=== PATIENT | male | born 1955 | race Caucasian/White ===

== ENCOUNTER → 2016-07-31 | Outpatient (CLI) | payer BC, OTHER ==
[~2016-07-31] MED LIST: HYDR-5688 PO; MULT-506 PO; TURM1CAP4 PO
== END | disposition home or self-care (01) ==
LOC: C.LABSPEC 15:43
PROVIDERS: ATTEND Internal Medicine Hematology & Oncology
DX: C18.9 Malignant neoplasm of colon, unspecified (principal)

== ENCOUNTER → 2016-08-19 | Outpatient (CLI) | payer OTHER | END | disposition home or self-care (01) | LOC: C.CPL 15:39 | PROVIDERS: ATTEND Surgery | DX: Z01.810 Encounter for preprocedural cardiovascular examination (principal); C19 Malignant neoplasm of rectosigmoid junction; I87.8 Other specified disorders of veins ==

== ENCOUNTER → 2016-08-24 | Day surgery (SDC) | payer OTHER ==
[2016-08-20 09:04] VITALS: BMI 36.0
[~2016-08-24] VITALS: Ht 185.4 cm; Wt 125.0 kg
[~2016-08-24] MED LIST changes: +ATROPINE SULFATE 0.1 MG/ML 5ML SYR IV PRN; +BUPIVACAINE/EPINEPHRINE 0.5% MPF 1:200,000 30 ML VIAL ONE; +CEFAZOLIN 3000 MG/65 ML D5W IV SCH; +EpHEDrine SULFATE INJ 50 MG/ML AMP IV PRN; +FENTANYL CITRATE INJ 50 MCG/1 ML 2 ML VIAL IV PRN; +FENTANYL CITRATE INJ 50 MCG/1 ML 2 ML VIAL ONE; +HEPARIN SOD (PORCINE) 1000 UNIT/ML 10 ML VIAL ONE; +HEPARIN SOD 5000 UNIT/0.5 ML CARP SQ SCH; +HYDROCODONE/ACETAMOPHEN 5/325MG TAB PO PRN; +LACTATED RINGER'S 1000ML 1,000 ML IV SCH; +MIDAZOLAM HCL 1 MG/ML 2ML VIAL ONE; +ONDANSETRON INJ 2 MG/ML 2 ML VIAL IV PRN; +PROPOFOL IV EMULSION 10 MG/ML 20 ML VIAL IV ONE; +SODIUM CHLORIDE 0.9% 1000ML 1,000 ML IV SCH
[2016-08-24 08:23] VITALS: BP 171/90; TEMP 36.6; O2SAT 97; Ht 185.4 cm; Wt 125.0 kg
--- NOTE | 2016-08-24 08:38 | History & Physical Bridge Note ---
H&P Re-Evaluation Bridge Note: I have examined the patient, reviewed the History & Physical and in the interval since the performance of the History & Physical I have noted the following changes of clinical significance: no changes. he had left subclavian port before so we will place right subclavian. discussed bleeding/infection/ infection of port requiring explant, thrombus, pneumothorax etc...questions answered. ok to proceed.
--- NOTE | 2016-08-24 10:12 | Discharge Instructions ---
Discharge Instructions Date of Service Aug 24, 2016. Visit Reason for Visit: Colorectal Cancer, Poor Venous Access Discharge Discharge Diagnosis / Problem: Colorectal Cancer, Poor Venous Access Discharge Goals Goal(s): Improve function Activity Recommendations Activity Limitations: as noted below Lifting Limitations: no more than 10 pounds Exercise/Sports Limitations: gradually increase as tolerated May Resume Sexual Activity: when tolerated Shower/Bathe: tomorrow Anesthesia . Post Anesthesia Instructions: If you have had General Anesthesia or IV Sedation: * Do not drive today. * Resume driving when surgeon permits. * Do not make important decisions or sign legal documents today. * Call surgeon for: 1. Temperature elevations greater than 101 degrees F. 2. Uncontrollable pain. 3. Excessive bleeding. 4. Persistent nausea and vomiting. 5. Medication intolerance (nausea, vomiting or rash). * For nausea and vomiting use only clear liquids such as: tea, soda, bouillon until nausea subsides, then gradually increase diet as tolerated. * If you have any concerns or questions, call your surgeon's office. If physician is unavailable and it is an emergency, call 911 or go to the nearest emergency room. . Instructions / Follow-Up Instructions / Follow-Up Please call Dr. Borden's office at [phone] with any questions or concerns. Diet Recommendations Recommended Home Diet: no limitations, resume previous diet Pending Studies Studies pending at discharge: no Medical Emergencies . Who to Call and When: Medical Emergencies: If at any time you feel your situation is an emergency, please call 911 immediately. . Non-Emergent Contact Non-Emergency issues call your: Primary Care Provider, Surgeon Call Non-Emergent contact if: temperature is above 101.5, your pain is not controlled, wound has increased drainage, wound has increased redness . . "Provider Documentation" section prepared by Petty Ruiz.
--- NOTE | 2016-08-24 11:00 | [facility] Operative Report ---
Operative Report Operative Date Aug 24, 2016. Pre-Operative Diagnosis Poor Venous Access, Colorectal Cancer Post-Operative Diagnosis need for chemotherapy Procedure(s) Performed right subclavian mediport insertion under fluoroscopy Surgeon Dr. Kingsley Borden Research Physiologist Surgeon(s) Petty Ruiz PA-C Estimated Blood Loss 5ml Findings normal anatomy during insertion. Specimens none Anesthesia MAC Complication(s) None Disposition Recovery Room / PACU I attest to the content of the Intraoperative Record and any orders documented therein. Any exceptions are noted below.
[2016-08-24 11:39] VITALS: BP 169/88; PULSE 58; TEMP 36.4; O2SAT 95
--- NOTE | 2016-08-24 12:05 | DIAGNOSTIC IMAGING REPORT ---
CHEST ONE VIEW PORTABLE CLINICAL HISTORY: A-port placement tube position COMPARISON STUDY: 06/17/2013 FINDINGS: A-Port position in the superior vena cava. Lungs are clear. Diaphragms are smooth. IMPRESSION: A port within the superior vena cava. No evidence of pneumothorax. Electronically signed by: Jin Iverson M.D. 08/24/2016 12:03 PM Dictated Date/Time: 08/24/2016 11:38 AM
[2016-08-24 12:10] VITALS: BP 168/80; PULSE 61; TEMP 36.4; O2SAT 99
--- NOTE | 2016-08-24 13:18 | Anesthesiology Progress Note ---
Anesthesia Post Op Note Date & Time Aug 24, 2016 at 13:17 Vital Signs Pain Intensity: 0 Vital Signs Past 12 Hours Date Time Temp Pulse Resp B/P Pulse Ox O2 Delivery O2 Flow Rate FiO2 08/24/16 12:10 36.4 61 18 168/80 99 Room Air 08/24/16 11:39 36.4 58 18 169/88 95 Room Air 08/24/16 11:30 36.5 58 14 147/93 94 Room Air 08/24/16 11:20 63 14 145/99 97 Room Air 08/24/16 11:10 36.2 72 12 163/85 100 Mask 10 08/24/16 08:23 36.6 18 171/90 97 Room Air Notes Mental Status: alert / awake / arousable, participated in evaluation Pt Amnestic to Procedure: Yes Nausea / Vomiting: adequately controlled Pain: adequately controlled Airway Patency, RR, SpO2: stable & adequate BP & HR: stable & adequate Hydration State: stable & adequate Anesthetic Complications: no major complications apparent
--- NOTE | 2016-08-24 14:22 | OPERATIVE REPORT ---
DATE OF OPERATION: 08/24/2016 PREOPERATIVE DIAGNOSIS: Colorectal cancer, need for chemotherapy. POSTOPERATIVE DIAGNOSIS: Same. PROCEDURE: Right subclavian MediPort insertion under fluoroscopy. SURGEON: Kingsley Borden DO. PANEL SAW OPERATOR: Petty Ruiz PA-C. ESTIMATED BLOOD LOSS: Approximately 5 mL. COMPLICATIONS: No immediate. ANESTHESIA: Monitored anesthesia care with local Marcaine. OPERATIVE NOTE: After informed consent was obtained, the patient was taken to the operating suite, placed in the supine position. A rolled towel was placed between the shoulder blades and the right arm was tucked. The upper chest wall was shaved. After IV sedation was administered, the right upper chest wall was sterilely prepped and draped in usual fashion. We used some Marcaine to create a skin wheal in the area of the housing pocket as well as up to the periosteum of the right clavicle. A horizontal incision was made with 15 blade scalpel and carried down through the soft tissue using electrocautery. Blunt finger dissection was used to create housing pocket for the MediPort itself. The catheter was flushed and connected to the MediPort. We then used a finder needle to access the right subclavian vein and advanced the guidewire through it under fluoroscopy into the superior vena cava. We then cut the catheter to appropriate length again under fluoroscopic guidance. We removed the needle and then advanced a vascular dilator with a peelaway sheath over the guidewire again under fluoroscopy. We then placed the MediPort into the housing pocket, withdrew the vascular dilator and the guidewire. We then advanced the catheter through the peelaway sheath. We then peeled the sheath away leaving the catheter in place. We verified position with fluoroscopy. We then flushed the port with heparin, withdrew dark venous blood and then flushed it again with heparin. We irrigated the wound pocket and then secured the MediPort to the pectoralis fascia using 0 Ethibond using three-point fixation. We then closed the housing pocket by using 3-0 Monocryl for the subcutaneous layer and 3-0 Monocryl for the skin. A sterile dressing was applied. The patient was awakened and transferred to recovery in stable condition. Postoperative portable chest x-ray to verify catheter position and to rule out pneumothorax is currently pending. I attest to the content of the Intraoperative Record and any orders documented therein. Any exceptio ns are noted below.
== END | disposition home or self-care (01) ==
LOC: C.ACU 07:48
PROVIDERS: ATTEND Surgery
DX: C19 Malignant neoplasm of rectosigmoid junction (principal)

== ENCOUNTER → 2017-03-30 | Outpatient (CLI) | payer OTHER ==
[~2017-03-30] MED LIST changes: -ATROPINE SULFATE 0.1 MG/ML 5ML SYR IV PRN; -BUPIVACAINE/EPINEPHRINE 0.5% MPF 1:200,000 30 ML VIAL ONE; -CEFAZOLIN 3000 MG/65 ML D5W IV SCH; -EpHEDrine SULFATE INJ 50 MG/ML AMP IV PRN; -FENTANYL CITRATE INJ 50 MCG/1 ML 2 ML VIAL IV PRN; -FENTANYL CITRATE INJ 50 MCG/1 ML 2 ML VIAL ONE; -HEPARIN SOD (PORCINE) 1000 UNIT/ML 10 ML VIAL ONE; -HEPARIN SOD 5000 UNIT/0.5 ML CARP SQ SCH; -HYDR-5688 PO; -HYDROCODONE/ACETAMOPHEN 5/325MG TAB PO PRN; -LACTATED RINGER'S 1000ML 1,000 ML IV SCH; -MIDAZOLAM HCL 1 MG/ML 2ML VIAL ONE; -ONDANSETRON INJ 2 MG/ML 2 ML VIAL IV PRN; -PROPOFOL IV EMULSION 10 MG/ML 20 ML VIAL IV ONE; -SODIUM CHLORIDE 0.9% 1000ML 1,000 ML IV SCH
[2017-03-30 12:25] LABS: ALT/SGPT 32 U/L (12-78); AST/SGOT 18 U/L (15-37); BLOOD UREA NITROGEN 13 mg/dl (7-18); BUN/CREATININE RATIO 11.8 (10-20); CALCIUM 8.6 mg/dl (8.5-10.1); CARBON DIOXIDE 27 mmol/L (21-32); CHLORIDE 107 mmol/L (98-107); CHOLESTEROL 141 mg/dl (0-200); CREATININE 1.12 mg/dl (0.60-1.40); GLUCOSE,FASTING 105 mg/dl (70-99); POTASSIUM 4.6 mmol/L (3.5-5.1); SODIUM 139 mmol/L (136-145)
[2017-03-30 12:29] LABS: ALB/GLOB RATIO 0.9 (0.9-2); ALKALINE PHOSPHATASE 76 U/L (45-117); CHOLESTEROL/HDL RATIO 3.1; HDL CHOLESTEROL 45 mg/dl; LDL CHOLESTEROL CALCULATED 75 mg/dl; TRIGLYCERIDES 105 mg/dl (0-150); VERY LOW DENSITY LIPOPROT CALC 21 mg/dl
== END | disposition home or self-care (01) ==
LOC: C.LABPBG 08:15
PROVIDERS: ATTEND Physician Assistant
DX: Z00.00 Encounter for general adult medical examination without abnormal findings (principal)

== ENCOUNTER → 2017-04-14 | Outpatient (CLI) | payer OTHER ==
[~2017-04-14] MED LIST changes: +OPTIRAY 320 IV PRN
--- NOTE | 2017-04-14 14:20 | DIAGNOSTIC IMAGING REPORT ---
(CHEST) THORAX WITH CT DOSE: 2765.67 mGy.cm HISTORY: Metastatic disease. LIVER W/METS TECHNIQUE: Multiaxial CT images of the chest were performed following the intravenous administration of contrast. A dose lowering technique was utilized adhering to the principles of ALARA. COMPARISON: None. FINDINGS: There are no focal infiltrative changes. Several small micronodules are present throughout both lungs. Medial aspect right apex is a 4 mm groundglass nodule transaxial image 11. There is a calcified granuloma right upper lobe transaxial image 25. Minimal pleural-based nodule left chest posteriorly image 28. There is no significant mediastinal or hilar adenopathy. Several calcified nodes are present. There is central catheter in this. Vena cava. Several small blastic nodules are present within the spine raising the possibility of metastatic bone change. Limited evaluation the upper abdomen shows a multinodular appearing liver. IMPRESSION: 1. Several small nodules scattered throughout both hemithoraces with a 3-6 month follow-up suggested. 2. Potential blastic bony metastatic change. 3. No significant mediastinal or hilar adenopathy. 4. Nodular appearing liver The above report was generated using voice recognition software. It may contain grammatical, syntax or spelling errors. Electronically signed by: Jin Iverson M.D. 04/14/2017 2:19 PM Dictated Date/Time: 04/14/2017 2:15 PM
--- NOTE | 2017-04-14 14:22 | DIAGNOSTIC IMAGING REPORT ---
ABDOMEN AND PELVIS CT WITH IV AND ORAL CONTRAST HISTORY: Prior cecal mass resection with reported hepatic metastasis. Follow-up exam. LIVER W/METS TECHNIQUE: Multiaxial CT images of the abdomen and pelvis were performed following the use of intravenous and oral contrast. A dose lowering technique was utilized adhering to the principles of ALARA. COMPARISON STUDY: CT abdomen and pelvis 04/17/2015 and 06/11/2013. FINDINGS: The lung bases are generally clear. There is no pneumatosis or pneumoperitoneum. Imaged inferior cardiac chambers are unremarkable. Bilateral gynecomastia. Heterogeneous appearance of the liver. Lobulated low attenuating lesion involving segment 8 of the liver measures 3.2 x 2.7 cm containing a marginal calcification. This is new from prior exam. Ill-defined low attenuating lesion involving segment segment 7 within the subserosal distribution measures 3.2 x 2.3 cm. 7 mm low attenuating lesion of the right hepatic lobe on image 24 series 3 appears unchanged from prior exam and may reflect a cyst. There is a mild amount of perihepatic fluid noted adjacent to the right hepatic lobe. No intrahepatic biliary ductal dilation. The spleen, pancreas and adrenal glands are within normal limits. The gallbladder appears to be surgically absent. Nonobstructing 3 mm calculus of the inferior pole left kidney. Cyst of the superior pole right kidney measures 1.9 cm. There is no renal calculi or hydronephrosis. Urinary bladder is unremarkable. The prostate is mildly enlarged. Atherosclerosis of the aorta is mild. Mildly enlarged periportal lymph nodes are seen, largest of which measures up to 2.3 x 1.3 cm. No additional pathologic adenopathy identified. There is no bowel obstruction or focal bowel wall thickening identified. Moderate stool volume throughout the colon. There are postsurgical changes compatible with partial right hemicolectomy with ileocolic anastomosis. Anterior abdominal wall incisional hernias are noted, largest of which is right paracentral and measures 4.7 m transversely containing nonobstructive loop of tortuous sigmoid colon. There are no suspicious lytic or blastic bony lesions to suggest metastasis. IMPRESSION: 1. Postoperative changes compatible with prior partial right hemicolectomy with ileocolic anastomosis. 2. Low attenuating lesions of the liver as described above suggest hepatic metastasis with trace perihepatic ascites. 3. Mild periportal adenopathy may reflect lymphatic metastasis. 4. Anterior abdominal wall incisional hernias are noted including a supraumbilical right paracentral hernia containing a loop of nonobstructed sigmoid colon. 5. Left nephrolithiasis. Electronically signed by: Jean Claude Brantley M.D. 04/14/2017 2:21 PM Dictated Date/Time: 04/14/2017 2:07 PM
== END | disposition home or self-care (01) ==
LOC: C.CTS 13:30
PROVIDERS: ATTEND Internal Medicine Hematology & Oncology
DX: C78.7 Secondary malignant neoplasm of liver and intrahepatic bile duct (principal); N20.0 Calculus of kidney; R91.8 Other nonspecific abnormal finding of lung field

== ENCOUNTER → 2017-07-14 | Outpatient (CLI) | payer OTHER ==
[~2017-07-14] MED LIST changes: -OPTIRAY 320 IV PRN
--- NOTE | 2017-07-14 09:40 | DIAGNOSTIC IMAGING REPORT ---
PET/CT SKULL-THIGH CLINICAL HISTORY: COLORECTAL CA COMPARISON STUDY: CT scan dated 04/14/2017 FINDINGS: The patient was injected with 14.2 mCi of F 18 labeled FDG. Following the standard induction phase, PET/CT scanning was performed from the skull base to the upper thigh region. Activity within the neck is felt to be physiologic. Within the chest, there is no pathologic ari activity. There is slight interval enlargement in a 6 mm right apical pulmonary nodule, and 6 mm left upper lobe pulmonary nodule. The lack of FDG activity does not exclude metastatic disease. Close follow-up is recommended. There are 3 FDG avid right lobe hepatic lesions. These lesions are difficult to visualize on the accompanying CT scan. These demonstrate SUV maximums of approximately 10. Hepatic metastases are suspected. There is no pathologic adrenal gland activity. There is no pathologic splenic activity. There is physiologic urinary tract and bowel activity. There are several ventral hernias containing both bowel and fat. There are postsurgical changes involve the right colon. No FDG avid skeletal lesions are visualized. IMPRESSION: 1. FDG avid right lobe hepatic lesions, likely metastatic 2. Slight interval enlargement a 6 mm right apical pulmonary nodule, and 6 mm left upper lobe pulmonary nodule. Although not FDG avid, metastatic disease must still be considered. Close follow-up is recommended. Electronically signed by: Cosme Heath M.D. 07/14/2017 9:39 AM Dictated Date/Time: 07/14/2017 9:28 AM
== END | disposition home or self-care (01) ==
LOC: C.PET 06:58
PROVIDERS: ATTEND Internal Medicine Hematology & Oncology
DX: C78.7 Secondary malignant neoplasm of liver and intrahepatic bile duct (principal); C18.9 Malignant neoplasm of colon, unspecified

== ENCOUNTER 2018-07-12 11:51 | Inpatient (IN) ==
[2018-07-12] MEDS ORDERED: ONDANSETRON INJ 2 MG/ML 2 ML VIAL IV STA ×2 (12:37→15:28)
[2018-07-12] MEDS ORDERED: SODIUM CHLORIDE 0.9% 1000ML 1,000 ML IV SCH (12:45)
--- NOTE | 2018-07-12 12:48 | Emergency Department Note ---
History of Present Illness General Chief complaint: Referred by Doctor Stated complaint: POSSIBLE BOWEL OBSTRUCTION Time Seen by Provider: 07/12/18 12:29 History of Present Illness Maximum Pain Intensity: 2 This 63-year-old male presents the ER being sent here by Dr. Milton for possible bowel obstruction or incarcerated hernia. The patient admits to abdominal pain in the area of a known hernia on the right side. The patient states that he had a small hernia in this area and then when he had an abdominal surgery it had gotten larger. Normally he can push it back in but he states he cannot push it back in at this time. The patient's last normal bowel movement was on Wednesday evening. Since that time he has had increased abdominal discomfort, nausea and vomiting. He has been taking Zofran with some relief of the nausea. He has been unable to eat or drink. The patient has history of colorectal cancer with metastatic disease to the liver and kidneys. The patient has had multiple abdominal surgeries. The patient currently is not undergoing any chemo or radiation. Home Medications Home Medications Medication Instructions Recorded Confirmed Type lisinopril 20 mg PO DAILY 07/12/18 07/12/18 History multivitamin 1 tab PO DAILY 07/12/18 07/12/18 History ondansetron HCl [Zofran] 0 mg PO UD PRN 07/12/18 07/12/18 History Allergies Allergy/AdvReac Type Severity Reaction Status Date / Time No Known Allergies Allergy Unverified 08/24/16 08:19 Past Med/Surg History Medical History Colon cancer (Resolved) Surgical History History of colon resection (Resolved) Social History Preferred Language: [place] Citizen Feels Safe at Home: Yes Smoking Status: Former smoker Review of Systems A total of 10 systems reviewed and were otherwise negative Physical Exam Vital Signs Vital Signs - 24 hr 07/12/18 11:54 07/12/18 13:26 07/12/18 13:28 Temperature 36.6 C Temperature Source Oral Sepsis Recent Fever Within 48 Hours No Sepsis New/Unexplained Change in Mental Status No Sepsis Action Taken by Nursing No Action Required Pulse Rate 80 Pulse Rate [Left Finger] 62 Pulse Rhythm [Left Finger] Pulse Strength [Left Finger] Respiratory Rate 18 16 Respiratory Effort / Characteristics Non-Labored Spontaneous Non-Labored Respiratory Depth Normal Normal Respiratory Pattern Regular Blood Pressure 143/86 H Blood Pressure [Left Arm] 130/80 Blood Pressure Mean 105 Blood Pressure Mean [Left Arm] 96 Blood Pressure Position Sitting Blood Pressure Position [Left Arm] Pulse Oximetry 100 100 Oxygen Delivery Method Room Air Room Air Room Air 07/12/18 14:53 07/12/18 15:30 07/12/18 16:49 Temperature Temperature Source Sepsis Recent Fever Within 48 Hours Sepsis New/Unexplained Change in Mental Status Sepsis Action Taken by Nursing Pulse Rate Pulse Rate [Left Finger] 77 65 66 Pulse Rhythm [Left Finger] Regular Regular Regular Pulse Strength [Left Finger] Normal Normal Normal Respiratory Rate 20 18 18 Respiratory Effort / Characteristics Non-Labored Spontaneous Non-Labored Spontaneous Non-Labored Spontaneous Respiratory Depth Normal Normal Normal Respiratory Pattern Regular Regular Regular Blood Pressure Blood Pressure [Left Arm] 188/85 H 176/86 H 150/75 H Blood Pressure Mean Blood Pressure Mean [Left Arm] 119 116 100 Blood Pressure Position Blood Pressure Position [Left Arm] Sitting Sitting Sitting Pulse Oximetry 100 96 100 Oxygen Delivery Method Room Air Room Air Room Air 07/12/18 19:00 07/12/18 19:49 Temperature 37.1 C Temperature Source Oral Sepsis Recent Fever Within 48 Hours Sepsis New/Unexplained Change in Mental Status Sepsis Action Taken by Nursing Pulse Rate Pulse Rate [Left Finger] 57 L 64 Pulse Rhythm [Left Finger] Pulse Strength [Left Finger] Respiratory Rate 18 Respiratory Effort / Characteristics Non-Labored Spontaneous Respiratory Depth Normal Respiratory Pattern Regular Blood Pressure Blood Pressure [Left Arm] 128/72 167/79 H Blood Pressure Mean Blood Pressure Mean [Left Arm] 90 108 Blood Pressure Position Blood Pressure Position [Left Arm] Sitting Lying Pulse Oximetry 96 98 Oxygen Delivery Method Room Air Room Air GENERAL: 63-year-old white male appears in no acute distress. MENTAL Status: Alert and oriented x3. MOUTH: Mucosa is slightly dry. NECK: Supple, no lymphadenopathy noted. No carotid bruits noted. LUNGS: Clear auscultation without wheezes rales or rhonchi. CARDIAC: Regular rate and rhythm without murmur. Pulses is full and equal throughout. BACK: No CVA tenderness noted. ABDOMEN: Multiple abdominal scars noted. Positive bowel sounds all 4 quadrants. Soft, palpable hernia noted mid right abdomen which is approximately 2 inches x 1 inch. It is not reducible. There is tenderness palpation in this area. Remainder of abdomen is nontender. EXTREMITIES: No cyanosis or edema noted. Course Administered Medications Discontinued Medications Sodium Chloride (Nss 1000ml) 1,000 mls @ 999 mls/hr IV .Q1H1M TRINH Stop: 07/12/18 13:45 Last Admin: 07/12/18 13:19 Dose: 999 mls/hr Documented by: [id number] Prochlorperazine 10 mg/ (Syringe) 10 mls @ 5 mls/min IV ONE ONE Stop: 07/12/18 13:44 Last Admin: 07/12/18 13:57 Dose: Not Given Documented by: [id number] Ioversol (Optiray 320 100ml) 94 ml IV ONCE PRN PRN Reason: Interaction Checking Stop: 07/16/18 16:33 Last Admin: 07/12/18 16:34 Dose: 94 ml Documented by: [id number] Ondansetron HCl (Zofran) 4 mg IV NOW STA Stop: 07/12/18 12:38 Last Admin: 07/12/18 13:14 Dose: 4 mg Documented by: [id number] Ondansetron HCl (Zofran) 8 mg IV NOW STA Stop: 07/12/18 15:29 Last Admin: 07/12/18 15:37 Dose: 8 mg Documented by: [id number] Prochlorperazine (Compazine) Confirm Administered Dose 10 mg .ROUTE .STK-MED ONE Stop: 07/12/18 13:53 Last Admin: 07/12/18 13:55 Dose: 10 mg Documented by: [id number] Medical Decision Making Differential Diagnosis Incarcerated hernia, small bowel obstruction, mass obstruction Medical Records Attestation: I reviewed the patient's medical records. Home Medications Current Medication List: was personally reviewed by me Laboratory Data Attestation: I reviewed the patient's lab results. Result diagrams: 07/12/18 13:00 07/12/18 13:00 Lab Results 07/12/18 07/12/18 Range/Units 13:00 13:00 WBC 9.95 (4.8-10.8) K/uL RBC 4.22 L (4.7-6.1) M/uL Hgb 13.8 L (14.0-18.0) g/dL Hct 39.8 L (42-52) % MCV 94.3 (80-100) fL MCH 32.7 (25-34) pg MCHC 34.7 (32-36) g/dL RDW Std Deviation 45.4 (36.4-46.3) fL RDW Coeff of Carrington 13.2 (11.5-14.5) % Plt Count 159 (130-400) K/uL MPV 10.0 (7.4-10.4) fL Immature Gran % (Auto) 0.4 % Neut % (Auto) 83.4 % Lymph % (Auto) 8.7 % Gilliam % (Auto) 7.4 % Eos % (Auto) 0.0 % Baso % (Auto) 0.1 % Immature Gran # (Auto) 0.04 H (0.00-0.02) K/uL Neut # (Auto) 8.29 H (1.4-6.5) K/uL Lymph # (Auto) 0.87 L (1.2-3.4) K/uL Gilliam # (Auto) 0.74 H (0.11-0.59) K/uL Eos # (Auto) 0.00 (0-0.5) K/uL Baso # (Auto) 0.01 (0-0.2) K/uL Sodium 138 (136-145) mmol/L Potassium TNP Chloride 103 (98-107) mmol/L Carbon Dioxide 27 (21-32) mmol/L Anion Gap 8.0 (3-11) BUN 25 H (7-18) mg/dl Creatinine 1.20 (0.6-1.4) mg/dl Est Cr Clr Drug Dosing 76.7 ml/min Est GFR ( Amer) 75.2 Est GFR (Non-Af Amer) 64.9 BUN/Creatinine Ratio 21.1 H (10-20) Glucose 100 H (70-99) mg/dl Calcium 9.2 (8.5-10.1) mg/dl Total Bilirubin 1.1 H (0.2-1) mg/dl AST TNP ALT 25 (12-78) U/L Alkaline Phosphatase 98 (45-117) U/L Total Protein 7.9 (6.4-8.2) gm/dl Albumin 3.6 (3.4-5.0) gm/dl Globulin 4.3 H (2.5-4.0) gm/dl Albumin/Globulin Ratio 0.8 L (0.9-2) Lipase 49 L (73-393) U/L Imaging Data Attestation: I personally reviewed and interpreted this imaging study as follows: Blood Pressure Blood Pressure Findings: Elevated blood pressure Blood Pressure Disposition: elevated BP felt to be situational MDM Narrative The patient was evaluated. IV access was obtained. The patient was given 1 L normal saline wide open. He was given Zofran 4 mg IV push for nausea. CBC and differential, renal profile, LFTs and lipase levels were ordered. CT of the abdomen and pelvis with IV and oral contrast was ordered interpreted by the radiologist and myself. The patient continued to be nauseated after receiving the Zofran therefore he was given Compazine 10 mg IV push. Labs were reviewed. White count was normal. Hemoglobin was 13.8 hematocrit 39.8, BUN was elevated at 25. The patient was reevaluated once again was complaining of nausea and therefore was given Zofran [address] was pending at the end of my shift therefore the patient's case was signed out to Francia Ji ENTERPRISE RESOURCE ANALYST. Please see her note for the remainder of patient care. Impression & Plan Abdominal pain Discharge Plan Visit Data *Final* Discharge Date/Time: 07/12/18 19:34 Chief Complaint: Referred by Doctor Stated Complaint: POSSIBLE BOWEL OBSTRUCTION ED Provider: Reyes Deng ED Midlevel Provider: Francia Ji Discharge Problem: Abdominal pain Patient Disposition: Admitted As Inpatient Discharge Instructions Interventions: ED Discharge Assessment Last Done: 07/12/18 19:34 Discharge Problem: Abdominal pain Qualifiers: Abdominal location: right lower quadrant Qualified Code(s): R10.31 - Right lower quadrant pain
[2018-07-12 13:12] LABS: Basophils # (auto) 0.01 K/uL (0-0.2); Basophils % (auto) 0.1 %; Hematocrit (blood only) 39.8 % (42-52); Hemoglobin 13.8 g/dL (14.0-18.0); Immature Granulocytes # (auto) 0.04 K/uL (0.00-0.02); Immature Granulocytes % (auto) 0.4 %; Lymphocytes # (auto) 0.87 K/uL (1.2-3.4); Lymphocytes % (auto) 8.7 %; Mean Corpuscular Hgb Conc 34.7 g/dL (32-36); Mean Corpuscular Volume 94.3 fL (80-100); Monocytes # (auto) 0.74 K/uL (0.11-0.59); Monocytes % (auto) 7.4 %; Neutrophils # (auto) 8.29 K/uL (1.4-6.5); Neutrophils % (auto) 83.4 %; Platelet Count 159 K/uL (130-400); RDW Coefficient of Variation 13.2 % (11.5-14.5); RDW Standard Deviation 45.4 fL (36.4-46.3); Red Blood Count 4.22 M/uL (4.7-6.1); White Blood Count 9.95 K/uL (4.8-10.8)
[2018-07-12 13:37] LABS: Alanine Aminotransferase 25 U/L (12-78); Albumin Globulin Ratio 0.8 (0.9-2); Albumin Level 3.6 gm/dl (3.4-5.0); Alkaline Phosphatase 98 U/L (45-117); BUN Creatinine Ratio 21.1 (10-20); Bilirubin,Total 1.1 mg/dl (0.2-1); Blood Urea Nitrogen 25 mg/dl (7-18); Calcium 9.2 mg/dl (8.5-10.1); Carbon Dioxide 27 mmol/L (21-32); Chloride 103 mmol/L (98-107); Creatinine Clr Calc Pharmacy 76.7 ml/min; Est GFR (African American) 75.2; Est GFR (Non-African American) 64.9; Globulin 4.3 gm/dl (2.5-4.0); Glucose 100 mg/dl (70-99); Sodium 138 mmol/L (136-145); Total Protein 7.9 gm/dl (6.4-8.2)
[2018-07-12] MEDS ORDERED: PROCHLORPERAZINE 10 MG in SYRINGE 8 ML IV ONE (13:43)
[2018-07-12] MEDS ORDERED: PROCHLORPERAZINE 5 MG/ML 2 ML VIAL ONE (13:52)
[2018-07-12] MEDS ORDERED: IOVERSOL 100ml IV PRN (16:34)
--- NOTE | 2018-07-12 16:58 | Emergency Department Note ---
ED Provider Note I received sign out from Jane Iverson PA-C at change of shift. Pt presented with abdominal pain and nausea/vomiting. Has a history of stage 4 colorectal cancer and previous colon resection, and a right abdominal/ventral hernia that he has previously been able to reduce, but unable to reduce today. CT abdomen/pelvis pending. IMAGING: CT SCAN OF THE ABDOMEN AND PELVIS WITH IV CONTRAST CLINICAL HISTORY: Nausea and vomiting. History of colorectal carcinoma. COMPARISON STUDY: Abdominal CT dated 04/14/2017. PET/CT dated 07/14/2017. TECHNIQUE: Following the IV administration of 94 cc of Optiray 320, CT scan of the abdomen and pelvis is performed from the lung bases to the proximal femora. Images are reviewed in the axial, sagittal, and coronal planes. An unenhanced series was obtained, as there was an IV malfunction on the initial scan. IV contrast was subsequently administered without complication. Oral contrast was utilized. A dose lowering technique was utilized adhering to the principles of ALARA. CT DOSE: 889.73 mGycm FINDINGS: Lung bases: The heart is normal in size and without pericardial effusion. The coronary arteries are densely calcified. There are least 4 pulmonary nodules at the right lung base. The largest is seen on image #49 and measures 8mm. These are new from 04/14/2017 and highly concerning for metastatic disease. No airspace consolidation or pleural effusion is identified. Liver: The contrast-enhanced liver is normal in size and heterogeneous in attenuation. There is evidence of multifocal hepatic metastatic disease. Although difficult to compare due to differences in technique, this appears to have progressed from the 07/14/2017 examination. Hyperdense material within the right lobe indicates previous chemoembolization. There is no intrahepatic biliary ductal dilatation. The hepatic veins and portal veins are patent. Gallbladder: Not identified and presumed surgically absent. Spleen: Normal in size and attenuation. There are numerous calcified splenic granulomas. Pancreas: Unremarkable. Adrenal glands: A 2.1 cm left adrenal nodule is new from previous and concerning for metastatic disease. The right adrenal gland is normal in appearance. Kidneys: No renal calculi are identified on the unenhanced series. The contrast enhanced kidneys demonstrate mild cortical atrophy and are without hydronephrosis. The kidneys enhance symmetrically. Scattered renal cysts measure up to 2.7 cm. Additional subcentimeter cortical hypodensities also likely represent cysts but are too small for definitive characterization. Parapelvic cysts are noted on the left. Abdominal vasculature: The abdominal aorta is normal in course and caliber noting mild to moderate atherosclerotic calcification. Bowel: There are postoperative changes of right colon resection with ileocolic anastomosis. The small bowel loops are distended and fluid-filled. These measure up to 4.3 cm in transverse diameter. There is a transition point identified in the ventral abdominal wall on image #210 at the site of an incarcerated hernia. The distal small bowel and colon are decompressed. No focally thick walled bowel loops are identified. There is no pneumatosis intestinalis or portal venous gas. Trace interloop fluid is noted in the right lower quadrant. Additional periumbilical hernia on image #249 contains a nonobstructed segment of the left colon. Peritoneum: There is no intraperitoneal free air or abdominal ascites. Lymphadenopathy: Right cardiophrenic nodes measure up to 15 mm in short axis as seen on image #65. Pelvic viscera: The prostate gland is mildly enlarged and heterogeneous. The bladder is distended. The bladder wall appears mildly thickened and trabeculated indicating chronic outlet obstruction. Skeletal structures: The skeletal structures are osteopenic. Mild lumbosacral spondylosis is observed. Scattered bone islands are noted in the pelvis. No lytic or blastic lesions are seen. IMPRESSION: 1. There are postoperative changes from partial right colectomy with ileocolic anastomosis. 2. Findings are consistent with a small bowel obstruction secondary to an incarcerated small bowel loop within a ventral hernia. 3. There is no pneumatosis intestinalis, portal venous gas, or intraperitoneal free air. No focally thick walled bowel loops are identified. 4. There are findings of multifocal hepatic metastatic disease with evidence of previous chemoembolization. This appears significantly progressed from 07/14/2017. 5. Pulmonary nodules at the right lung base and a left adrenal nodule are new from previous, and there are pathologically enlarged right cardiophrenic lymph nodes. These also likely represent foci of metastatic disease. 6. A second ventral hernia contains a nonobstructed segment of the left colon. This is located inferior to the incarcerated hernia. 7. Additional findings as above. I evaluated the patient, he reports that his pain and nausea are well controlled currently. He still has abdominal tenderness to palpation on exam. CT results reviewed as above, noting an incarcerated small bowel loop within the ventral hernia and resulting small bowel obstruction. I spoke on the phone with Dr. Evans, general surgery, who evaluated the patient and agrees to admit him for possible surgery tomorrow. He was able to reduce the patient's hernia and did not feel that emergent surgery was necessary. Patient was updated on plan of admission, he verbalized understanding and was agreeable to this plan. He was stable at time of admission. Impression & Plan Abdominal pain Past Med/Surg History Medical History Colon cancer (Resolved) Surgical History History of colon resection (Resolved) Social History Preferred Language: Malay Feels Safe at Home: Yes Smoking Status: Former smoker Results & Data Vital Signs Vital Signs - 24 hr 07/12/18 11:54 07/12/18 13:26 07/12/18 13:28 Temperature 36.6 C Temperature Source Oral Sepsis Recent Fever Within 48 Hours No Sepsis New/Unexplained Change in Mental Status No Sepsis Action Taken by Nursing No Action Required Pulse Rate 80 Pulse Rate [Left Finger] 62 Pulse Rhythm [Left Finger] Pulse Strength [Left Finger] Respiratory Rate 18 16 Respiratory Effort / Characteristics Non-Labored Spontaneous Non-Labored Respiratory Depth Normal Normal Respiratory Pattern Regular Blood Pressure 143/86 H Blood Pressure [Left Arm] 130/80 Blood Pressure Mean 105 Blood Pressure Mean [Left Arm] 96 Blood Pressure Position Sitting Blood Pressure Position [Left Arm] Pulse Oximetry 100 100 Oxygen Delivery Method Room Air Room Air Room Air 07/12/18 14:53 07/12/18 15:30 07/12/18 16:49 Temperature Temperature Source Sepsis Recent Fever Within 48 Hours Sepsis New/Unexplained Change in Mental Status Sepsis Action Taken by Nursing Pulse Rate Pulse Rate [Left Finger] 77 65 66 Pulse Rhythm [Left Finger] Regular Regular Regular Pulse Strength [Left Finger] Normal Normal Normal Respiratory Rate 20 18 18 Respiratory Effort / Characteristics Non-Labored Spontaneous Non-Labored Spontaneous Non-Labored Spontaneous Respiratory Depth Normal Normal Normal Respiratory Pattern Regular Regular Regular Blood Pressure Blood Pressure [Left Arm] 188/85 H 176/86 H 150/75 H Blood Pressure Mean Blood Pressure Mean [Left Arm] 119 116 100 Blood Pressure Position Blood Pressure Position [Left Arm] Sitting Sitting Sitting Pulse Oximetry 100 96 100 Oxygen Delivery Method Room Air Room Air Room Air 07/12/18 19:00 07/12/18 19:49 Temperature 37.1 C Temperature Source Oral Sepsis Recent Fever Within 48 Hours Sepsis New/Unexplained Change in Mental Status Sepsis Action Taken by Nursing Pulse Rate Pulse Rate [Left Finger] 57 L 64 Pulse Rhythm [Left Finger] Pulse Strength [Left Finger] Respiratory Rate 18 Respiratory Effort / Characteristics Non-Labored Spontaneous Respiratory Depth Normal Respiratory Pattern Regular Blood Pressure Blood Pressure [Left Arm] 128/72 167/79 H Blood Pressure Mean Blood Pressure Mean [Left Arm] 90 108 Blood Pressure Position Blood Pressure Position [Left Arm] Sitting Lying Pulse Oximetry 96 98 Oxygen Delivery Method Room Air Room Air Laboratory Data Result diagrams: 07/12/18 13:00 07/12/18 13:00 Lab Results 07/12/18 07/12/18 Range/Units 13:00 13:00 WBC 9.95 (4.8-10.8) K/uL RBC 4.22 L (4.7-6.1) M/uL Hgb 13.8 L (14.0-18.0) g/dL Hct 39.8 L (42-52) % MCV 94.3 (80-100) fL MCH 32.7 (25-34) pg MCHC 34.7 (32-36) g/dL RDW Std Deviation 45.4 (36.4-46.3) fL RDW Coeff of Carrington 13.2 (11.5-14.5) % Plt Count 159 (130-400) K/uL MPV 10.0 (7.4-10.4) fL Immature Gran % (Auto) 0.4 % Neut % (Auto) 83.4 % Lymph % (Auto) 8.7 % [place] % (Auto) 7.4 % Eos % (Auto) 0.0 % Baso % (Auto) 0.1 % Immature Gran # (Auto) 0.04 H (0.00-0.02) K/uL Neut # (Auto) 8.29 H (1.4-6.5) K/uL Lymph # (Auto) 0.87 L (1.2-3.4) K/uL [place] # (Auto) 0.74 H (0.11-0.59) K/uL Eos # (Auto) 0.00 (0-0.5) K/uL Baso # (Auto) 0.01 (0-0.2) K/uL Sodium 138 (136-145) mmol/L Potassium TNP Chloride 103 (98-107) mmol/L Carbon Dioxide 27 (21-32) mmol/L Anion Gap 8.0 (3-11) BUN 25 H (7-18) mg/dl Creatinine 1.20 (0.6-1.4) mg/dl Est Cr Clr Drug Dosing 76.7 ml/min Est GFR ( Amer) 75.2 Est GFR (Non-Af Amer) 64.9 BUN/Creatinine Ratio 21.1 H (10-20) Glucose 100 H (70-99) mg/dl Calcium 9.2 (8.5-10.1) mg/dl Total Bilirubin 1.1 H (0.2-1) mg/dl AST TNP ALT 25 (12-78) U/L Alkaline Phosphatase 98 (45-117) U/L Total Protein 7.9 (6.4-8.2) gm/dl Albumin 3.6 (3.4-5.0) gm/dl Globulin 4.3 H (2.5-4.0) gm/dl Albumin/Globulin Ratio 0.8 L (0.9-2) Lipase 49 L (73-393) U/L Administered Medications Discontinued Medications Sodium Chloride (Nss 1000ml) 1,000 mls @ 999 mls/hr IV .Q1H1M TRINH Stop: 07/12/18 13:45 Last Admin: 07/12/18 13:19 Dose: 999 mls/hr Documented by: [id number] Prochlorperazine 10 mg/ (Syringe) 10 mls @ 5 mls/min IV ONE ONE Stop: 07/12/18 13:44 Last Admin: 07/12/18 13:57 Dose: Not Given Documented by: [id number] Ioversol (Optiray 320 100ml) 94 ml IV ONCE PRN PRN Reason: Interaction Checking Stop: 07/16/18 16:33 Last Admin: 07/12/18 16:34 Dose: 94 ml Documented by: [id number] Ondansetron HCl (Zofran) 4 mg IV NOW STA Stop: 07/12/18 12:38 Last Admin: 07/12/18 13:14 Dose: 4 mg Documented by: [id number] Ondansetron HCl (Zofran) 8 mg IV NOW STA Stop: 07/12/18 15:29 Last Admin: 07/12/18 15:37 Dose: 8 mg Documented by: [id number] Prochlorperazine (Compazine) Confirm Administered Dose 10 mg .ROUTE .STK-MED ONE Stop: 07/12/18 13:53 Last Admin: 07/12/18 13:55 Dose: 10 mg Documented by: [id number] Discharge Plan Visit Data *Final* Discharge Date/Time: 07/12/18 19:34 Chief Complaint: Referred by Doctor Stated Complaint: POSSIBLE BOWEL OBSTRUCTION ED Provider: Reyes Deng ED Midlevel Provider: Francia Ji Discharge Problem: Abdominal pain Patient Disposition: Admitted As Inpatient Discharge Instructions Interventions: ED Discharge Assessment Last Done: 07/12/18 19:34 Discharge Problem: Abdominal pain Qualifiers: Abdominal location: right lower quadrant Qualified Code(s): R10.31 - Right lower quadrant pain
--- NOTE | 2018-07-12 17:07 | CT Scan Report ---
CT SCAN OF THE ABDOMEN AND PELVIS WITH IV CONTRAST CLINICAL HISTORY: Nausea and vomiting. History of colorectal carcinoma. COMPARISON STUDY: Abdominal CT dated 04/14/2017. PET/CT dated 07/14/2017. TECHNIQUE: Following the IV administration of 94 cc of Optiray 320, CT scan of the abdomen and pelvi s is performed from the lung bases to the proximal femora. Images are reviewed in the axial, sagittal , and coronal planes. An unenhanced series was obtained, as there was an IV malfunction on the initia l scan. IV contrast was subsequently administered without complication. Oral contrast was utilized. A dose lowering technique was utilized adhering to the principles of ALARA. CT DOSE: 889.73 mGycm FINDINGS: Lung bases: The heart is normal in size and without pericardial effusion. The coronary arteries are d ensely calcified. There are least 4 pulmonary nodules at the right lung base. The largest is seen on image #49 and measures 8mm. These are new from 04/14/2017 and highly concerning for metastatic disease . No airspace consolidation or pleural effusion is identified. Liver: The contrast-enhanced liver is normal in size and heterogeneous in attenuation. There is evide nce of multifocal hepatic metastatic disease. Although difficult to compare due to differences in james hnique, this appears to have progressed from the 07/14/2017 examination. Hyperdense material within the right lobe indicates previous chemoembolization. There is no intrahepatic biliary ductal dilatation. The hepatic veins and portal veins are patent. Gallbladder: Not identified and presumed surgically absent. Spleen: Normal in size and attenuation. There are numerous calcified splenic granulomas. Pancreas: Unremarkable. Adrenal glands: A 2.1 cm left adrenal nodule is new from previous and concerning for metastatic disea se. The right adrenal gland is normal in appearance. Kidneys: No renal calculi are identified on the unenhanced series. The contrast enhanced kidneys demo nstrate mild cortical atrophy and are without hydronephrosis. The kidneys enhance symmetrically. Scat tered renal cysts measure up to 2.7 cm. Additional subcentimeter cortical hypodensities also likely r epresent cysts but are too small for definitive characterization. Parapelvic cysts are noted on the l eft. Abdominal vasculature: The abdominal aorta is normal in course and caliber noting mild to moderate at herosclerotic calcification. Bowel: There are postoperative changes of right colon resection with ileocolic anastomosis. The small bowel loops are distended and fluid-filled. These measure up to 4.3 cm in transverse diameter. There is a transition point identified in the ventral abdominal wall on image #210 at the site of an incar cerated hernia. The distal small bowel and colon are decompressed. No focally thick walled bowel loop s are identified. There is no pneumatosis intestinalis or portal venous gas. Trace interloop fluid is noted in the right lower quadrant. Additional periumbilical hernia on image #249 contains a nonobstr ucted segment of the left colon. Peritoneum: There is no intraperitoneal free air or abdominal ascites. Lymphadenopathy: Right cardiophrenic nodes measure up to 15 mm in short axis as seen on image #65. Pelvic viscera: The prostate gland is mildly enlarged and heterogeneous. The bladder is distended. Th e bladder wall appears mildly thickened and trabeculated indicating chronic outlet obstruction. Skeletal structures: The skeletal structures are osteopenic. Mild lumbosacral spondylosis is observed . Scattered bone islands are noted in the pelvis. No lytic or blastic lesions are seen. IMPRESSION: 1. There are postoperative changes from partial right colectomy with ileocolic anastomosis. 2. Findings are consistent with a small bowel obstruction secondary to an incarcerated small bowel lo op within a ventral hernia. 3. There is no pneumatosis intestinalis, portal venous gas, or intraperitoneal free air. No focally t hick walled bowel loops are identified. 4. There are findings of multifocal hepatic metastatic disease with evidence of previous chemoemboliz ation. This appears significantly progressed from 07/14/2017. 5. Pulmonary nodules at the right lung base and a left adrenal nodule are new from previous, and ther e are pathologically enlarged right cardiophrenic lymph nodes. These also likely represent foci of me tastatic disease. 6. A second ventral hernia contains a nonobstructed segment of the left colon. This is located inferi or to the incarcerated hernia. 7. Additional findings as above. Electronically signed by: Vin Wynne M.D. 07/12/2018 5:05 PM
--- NOTE | 2018-07-12 18:39 | History & Physical Report ---
Date of Service July 12, 2018 Assessment & Plan (1) Incisional hernia, incarcerated: 63-year-old male with colon cancer metastatic to liver with incarcerated incisional hernia causing bowel obstruction. I was able to reduce the hernia at the bedside. After discussion with the patient, they would elect to get the hernia fixed as this has become more problematic over the past few weeks. Admit to observation Plan for incisional hernia repair in the operating room tomorrow The risk of the procedure were discussed to include but are not limited to bleeding, infection, recurrence, damage to surrounding structures, need for future or more extensive surgery, the risks of anesthesia. Clear liquids tonight, n.p.o. after midnight Lovenox Ancef preop Diagnosis, details of procedure and recovery, and plan of care discussed the patient, all cords were answered, the patient expressed understanding agrees the plan of care as stated. Present on Admission?: Yes (2) Metastatic colon cancer to liver: Present on Admission?: Yes (3) History of colon resection: Present on Admission?: Yes (4) Hypertension: Present on Admission?: Yes History of Present Illness Primary Care Provider: Ghada Joseph DO 63-year-old male with history of stage IV colon cancer presented to the emergency department with increasing pain and a known incisional hernia. He has had the hernia for some time. He had a prior colon resection for colon cancer. He then had a partial liver resection and ablation of metastatic tumors to his liver. After the surgery he noticed that his hernia got slightly larger and more symptomatic. The hernia is in the midline just above into the right of his umbilicus. He started noticing increasing pain and a firm bulge that he could not reduce in the area today. He had nausea and vomiting. Last bowel movement on Wednesday, no gas. He is not currently on any chemotherapy. No history of DVT, not on any current blood thinners. He has hypertension and is on lisinopril. Otherwise he is healthy. Allergies Allergy/AdvReac Type Severity Reaction Status Date / Time No Known Allergies Allergy Unverified 08/24/16 08:19 Home Medications Home Medications Medication Instructions Recorded Confirmed Type lisinopril 20 mg PO DAILY 07/12/18 07/12/18 History multivitamin 1 tab PO DAILY 07/12/18 07/12/18 History ondansetron HCl [Zofran] 0 mg PO UD PRN 07/12/18 07/12/18 History Past Med/Surg History Medical History Colon cancer (Resolved) Surgical History History of colon resection (Resolved) Social History Preferred Language: Turkish Feels Safe at Home: Yes Smoking Status: Former smoker Review of Systems All systems reviewed & are unremarkable except as noted in HPI & below Physical Exam Vital Signs (Past 24 Hours): Last Vital Signs Temp 36.6 C 07/12/18 11:54 Pulse 66 07/12/18 16:49 Resp 18 07/12/18 16:49 BP 150/75 H 07/12/18 16:49 Pulse Ox 100 07/12/18 16:49 Constitutional: WD/WN, vitals as above no acute distress Eyes: PERRL, conjunctivae normal, anicteric sclerae ENMT: external ear and nose normal, oropharynx normal Neck: trachea midline, no thyromegaly Respiratory: normal respiratory effort, lungs clear to auscultation Cardiovascular: RRR, no murmur, no edema Gastrointestinal (Abdomen): Percussion/Palpation: + abdomen tender, abdomen soft and + hernia (Incisional hernia just superior to the right of midline. On initial exam it was mildly tender to palpation with an incarcerated piece of bow el. After several minutes I was able to reduce the bowel and hernia contents. Unable to completely appreciate the fascial defect per) Musculoskeletal: no cyanosis or clubbing, extremities motor strength 5/5 Skin: no rashes, warm and dry Neurologic: PERRL, EOMI, accommodation nl, no face palsy, no dysarthria Psychiatric: A+Ox3, euthymic affect Lymphatic: no cervical or axillary lymphadenopathy Results & Data Laboratory Results Laboratory Results - last 24 hr 07/12/18 07/12/18 13:00 13:00 WBC 9.95 RBC 4.22 L Hgb 13.8 L Hct 39.8 L MCV 94.3 MCH 32.7 MCHC 34.7 RDW Std Deviation 45.4 RDW Coeff of Carrington 13.2 Plt Count 159 MPV 10.0 Immature Gran % (Auto) 0.4 Neut % (Auto) 83.4 Lymph % (Auto) 8.7 Teton % (Auto) 7.4 Eos % (Auto) 0.0 Baso % (Auto) 0.1 Immature Gran # (Auto) 0.04 H Neut # (Auto) 8.29 H Lymph # (Auto) 0.87 L Teton # (Auto) 0.74 H Eos # (Auto) 0.00 Baso # (Auto) 0.01 Sodium 138 Potassium TNP Chloride 103 Carbon Dioxide 27 Anion Gap 8.0 BUN 25 H Creatinine 1.20 Est Cr Clr Drug Dosing 76.7 Est GFR ( Amer) 75.2 Est GFR (Non-Af Amer) 64.9 BUN/Creatinine Ratio 21.1 H Glucose 100 H Calcium 9.2 Total Bilirubin 1.1 H AST TNP ALT 25 Alkaline Phosphatase 98 Total Protein 7.9 Albumin 3.6 Globulin 4.3 H Albumin/Globulin Ratio 0.8 L Lipase 49 L Diagnostic Findings [place], [place] [phone] CT Scan Report Patient: KAYCEE ZARAGOZA Date: 07/12/18 MR#: [id number]: [address] [place] [address] Acct ID:[id number]: Date: 1955[facility] Zip: [place] [address] Age: 63Location: ED Sex: M Room/Bed: Att Phy: Diagnosis: POSSIBLE BOWEL OBSTRUCTION Paulina Phy: Ghada Joseph, DOService Date: 07/12/18 Fam Phy: Interpreting Phy: Vin Wynne MD Admit Phy: Ordering Phy: Zoraida Iverson PA-C cc: ~ CT SCAN OF THE ABDOMEN AND PELVIS WITH IV CONTRAST CLINICAL HISTORY: Nausea and vomiting. History of colorectal carcinoma. COMPARISON STUDY: Abdominal CT dated 04/14/2017. PET/CT dated 07/14/2017. TECHNIQUE: Following the IV administration of 94 cc of Optiray 320, CT scan of the abdomen and pelvis is performed from the lung bases to the proximal femora. Images are reviewed in the axial, sagittal, and coronal planes. An unenhanced series was obtained, as there was an IV malfunction on the initial scan. IV contrast was subsequently administered without complication. Oral contrast was utilized. A dose lowering technique was utilized adhering to the principles of ALARA. CT DOSE: 889.73 mGycm FINDINGS: Lung bases: The heart is normal in size and without pericardial effusion. The coronary arteries are densely calcified. There are least 4 pulmonary nodules at the right lung base. The largest is seen on image #49 and measures 8mm. These are new from 04/14/2017 and highly concerning for metastatic disease. No airspace consolidation or pleural effusion is identified. Liver: The contrast-enhanced liver is normal in size and heterogeneous in attenuation. There is evidence of multifocal hepatic metastatic disease. Although difficult to compare due to differences in technique, this appears to have progressed from the 07/14/2017 examination. Hyperdense material within the right lobe indicates previous chemoembolization. There is no intrahepatic biliary ductal dilatation. The hepatic veins and portal veins are patent. Gallbladder: Not identified and presumed surgically absent. Spleen: Normal in size and attenuation. There are numerous calcified splenic granulomas. Pancreas: Unremarkable. Adrenal glands: A 2.1 cm left adrenal nodule is new from previous and concerning for metastatic disease. The right adrenal gland is normal in appearance. Kidneys: No renal calculi are identified on the unenhanced series. The contrast enhanced kidneys demonstrate mild cortical atrophy and are without hydronephrosis. The kidneys enhance symmetrically. Scattered renal cysts measure up to 2.7 cm. Additional subcentimeter cortical hypodensities also likely represent cysts but are too small for definitive characterization. Parapelvic cysts are noted on the left. Abdominal vasculature: The abdominal aorta is normal in course and caliber noting mild to moderate atherosclerotic calcification. Bowel: There are postoperative changes of right colon resection with ileocolic anastomosis. The small bowel loops are distended and fluid-filled. These measure up to 4.3 cm in transverse diameter. There is a transition point identified in the ventral abdominal wall on image #210 at the site of an incarcerated hernia. The distal small bowel and colon are decompressed. No focally thick walled bowel loops are identified. There is no pneumatosis intestinalis or portal venous gas. Trace interloop fluid is noted in the right lower quadrant. Additional periumbilical hernia on image #249 contains a nonobstructed segment of the left colon. Peritoneum: There is no intraperitoneal free air or abdominal ascites. Lymphadenopathy: Right cardiophrenic nodes measure up to 15 mm in short axis as seen on image #65. Pelvic viscera: The prostate gland is mildly enlarged and heterogeneous. The bladder is distended. The bladder wall appears mildly thickened and trabeculated indicating chronic outlet obstruction. Skeletal structures: The skeletal structures are osteopenic. Mild lumbosacral spondylosis is observed. Scattered bone islands are noted in the pelvis. No lytic or blastic lesions are seen. IMPRESSION: 1. There are postoperative changes from partial right colectomy with ileocolic anastomosis. 2. Findings are consistent with a small bowel obstruction secondary to an incarcerated small bowel loop within a ventral hernia. 3. There is no pneumatosis intestinalis, portal venous gas, or intraperitoneal free air. No focally thick walled bowel loops are identified. 4. There are findings of multifocal hepatic metastatic disease with evidence of previous chemoembolization. This appears significantly progressed from 07/14/2017. 5. Pulmonary nodules at the right lung base and a left adrenal nodule are new from previous, and there are pathologically enlarged right cardiophrenic lymph nodes. These also likely represent foci of metastatic disease. 6. A second ventral hernia contains a nonobstructed segment of the left colon. This is located inferior to the incarcerated hernia. 7. Additional findings as above.
[2018-07-12] MEDS ORDERED: DiphenhydrAMINE HCL 50 MG/ML VIAL IV PRN (19:49)
[2018-07-12] MEDS ORDERED: MoRPHine SULFATE 2 MG/ML CARP IV PRN (19:49)
[2018-07-12] MEDS ORDERED: MoRPHine SULFATE 4 MG/ML 1 ML CARP\\VIAL ONE (21:00)
[2018-07-12 21:05] LABS: INR 1.2 (0.9-1.1); Prothrombin Time 12.1 Seconds (9.0-12.0)
[2018-07-12] MEDS: MoRPHine SULFATE 4 MG/ML 1 ML CARP\\VIAL IV PRN (21:06)
[2018-07-12] MEDS: LACTATED RINGER'S 1,000 ML IV SCH (21:32)
[2018-07-12] MEDS: ONDANSETRON INJ 2 MG/ML 2 ML VIAL IV PRN (23:08)
[2018-07-12] MEDS ORDERED: ENOXAPARIN INJ 40 MG/0.4 ML SYR SQ SCH (23:45)
[2018-07-13] MEDS ORDERED: HEPARIN 100 UNIT/ML 5ML FLUSH FLUSH PRN (01:09)
[2018-07-13] MEDS: MoRPHine SULFATE 4 MG/ML 1 ML CARP\\VIAL IV PRN ×2 (01:29→06:41)
[2018-07-13] MEDS: LACTATED RINGER'S 1,000 ML IV SCH ×3 (05:28→23:37)
[2018-07-13] MEDS: ONDANSETRON INJ 2 MG/ML 2 ML VIAL IV PRN (06:41)
--- NOTE | 2018-07-13 09:28 | Surgery Progress Note ---
Date of Service July 13, 2018 Assessment & Plan (1) Incisional hernia, incarcerated: 63-year-old male with colon cancer metastatic to liver with incarcerated incisional hernia causing bowel obstruction. Plan for incisional hernia repair in the operating room The risk of the procedure were discussed to include but are not limited to bleeding, infection, recurrence, damage to surrounding structures, need for future or more extensive surgery, the risks of anesthesia. Ancef preop Diagnosis, details of procedure and recovery, and plan of care discussed the patient, all cords were answered, the patient expressed understanding agrees the plan of care as stated. Present on Admission?: Yes (2) Metastatic colon cancer to liver: (3) History of colon resection: (4) Hypertension: Subjective 63 year old male with stage iv colon cancer admitted with incisional hernia that was incarcerated and causing bowel obstruction. Hernia reduced by myself in ED, feels better. Had some heartburn overnight, pain is improved, no flatus or bm. Planned for surgery today Physical Exam Vital Signs (Past 24 Hours): Last Vital Signs Temp 36.8 C 07/13/18 07:42 Pulse 60 07/13/18 07:42 Resp 15 07/13/18 07:42 BP 130/74 07/13/18 07:42 Pulse Ox 98 07/13/18 07:42 Constitutional: WD/WN, vitals as above no acute distress Gastrointestinal (Abdomen): Percussion/Palpation: abdomen soft and + hernia (incisional hernia superior to umbilicus and just to right of midline); abdomen nontender Results & Data Diagnostic Findings [place], [place] [phone] CT Scan Report Patient: KAYCEE ZARAGOZA Date: 07/12/18 MR#: [id number]: [address] [place] [address] Acct ID:[id number]: Date: 1955[facility] Zip: [place] [address] Age: 63Location: ED Sex: M Room/Bed: Att Phy: Diagnosis: POSSIBLE BOWEL OBSTRUCTION Paulina Phy: Ghada Joseph, DOService Date: 07/12/18 Fam Phy: Interpreting Phy: Vin Wynne MD Admit Phy: Ordering Phy: Zoraida Iverson PA-C cc: ~ CT SCAN OF THE ABDOMEN AND PELVIS WITH IV CONTRAST CLINICAL HISTORY: Nausea and vomiting. History of colorectal carcinoma. COMPARISON STUDY: Abdominal CT dated 04/14/2017. PET/CT dated 07/14/2017. TECHNIQUE: Following the IV administration of 94 cc of Optiray 320, CT scan of the abdomen and pelvis is performed from the lung bases to the proximal femora. Images are reviewed in the axial, sagittal, and coronal planes. An unenhanced series was obtained, as there was an IV malfunction on the initial scan. IV contrast was subsequently administered without complication. Oral contrast was utilized. A dose lowering technique was utilized adhering to the principles of ALARA. CT DOSE: 889.73 mGycm FINDINGS: Lung bases: The heart is normal in size and without pericardial effusion. The coronary arteries are densely calcified. There are least 4 pulmonary nodules at the right lung base. The largest is seen on image #49 and measures 8mm. These are new from 04/14/2017 and highly concerning for metastatic disease. No airspace consolidation or pleural effusion is identified. Liver: The contrast-enhanced liver is normal in size and heterogeneous in attenuation. There is evidence of multifocal hepatic metastatic disease. Although difficult to compare due to differences in technique, this appears to have progressed from the 07/14/2017 examination. Hyperdense material within the right lobe indicates previous chemoembolization. There is no intrahepatic biliary ductal dilatation. The hepatic veins and portal veins are patent. Gallbladder: Not identified and presumed surgically absent. Spleen: Normal in size and attenuation. There are numerous calcified splenic granulomas. Pancreas: Unremarkable. Adrenal glands: A 2.1 cm left adrenal nodule is new from previous and concerning for metastatic disease. The right adrenal gland is normal in appearance. Kidneys: No renal calculi are identified on the unenhanced series. The contrast enhanced kidneys demonstrate mild cortical atrophy and are without hydronephrosis. The kidneys enhance symmetrically. Scattered renal cysts measure up to 2.7 cm. Additional subcentimeter cortical hypodensities also likely represent cysts but are too small for definitive characterization. Parapelvic cysts are noted on the left. Abdominal vasculature: The abdominal aorta is normal in course and caliber noting mild to moderate atherosclerotic calcification. Bowel: There are postoperative changes of right colon resection with ileocolic anastomosis. The small bowel loops are distended and fluid-filled. These measure up to 4.3 cm in transverse diameter. There is a transition point identified in the ventral abdominal wall on image #210 at the site of an incarcerated hernia. The distal small bowel and colon are decompressed. No focally thick walled bowel loops are identified. There is no pneumatosis intestinalis or portal venous gas. Trace interloop fluid is noted in the right lower quadrant. Additional periumbilical hernia on image #249 contains a nonobstructed segment of the left colon. Peritoneum: There is no intraperitoneal free air or abdominal ascites. Lymphadenopathy: Right cardiophrenic nodes measure up to 15 mm in short axis as seen on image #65. Pelvic viscera: The prostate gland is mildly enlarged and heterogeneous. The bladder is distended. The bladder wall appears mildly thickened and trabeculated indicating chronic outlet obstruction. Skeletal structures: The skeletal structures are osteopenic. Mild lumbosacral spondylosis is observed. Scattered bone islands are noted in the pelvis. No lytic or blastic lesions are seen. IMPRESSION: 1. There are postoperative changes from partial right colectomy with ileocolic anastomosis. 2. Findings are consistent with a small bowel obstruction secondary to an incarcerated small bowel loop within a ventral hernia. 3. There is no pneumatosis intestinalis, portal venous gas, or intraperitoneal free air. No focally thick walled bowel loops are identified. 4. There are findings of multifocal hepatic metastatic disease with evidence of previous chemoembolization. This appears significantly progressed from 07/14/2017. 5. Pulmonary nodules at the right lung base and a left adrenal nodule are new f rom previous, and there are pathologically enlarged right cardiophrenic lymph nodes. These also likely represent foci of metastatic disease. 6. A second ventral hernia contains a nonobstructed segment of the left colon. This is located inferior to the incarcerated hernia. 7. Additional findings as above.
[2018-07-13] MEDS: PROMETHAZINE HCL 12.5 MG in SODIUM CHLORIDE 0.9% 50 ML IV PRN (10:15)
[2018-07-13] MEDS ORDERED: ATROPINE SULFATE 0.1 MG/ML 10ML SYR IV PRN (12:53)
[2018-07-13] MEDS ORDERED: ePHEDrine sulfate 50 MG/ML AMP IV PRN (12:53)
[2018-07-13] MEDS ORDERED: fentaNYL citrate 100 MCG/2 ML VIAL IV PRN (12:53)
[2018-07-13] MEDS ORDERED: ONDANSETRON INJ 2 MG/ML 2 ML VIAL IV PRN (12:53)
--- NOTE | 2018-07-13 12:53 | Anesthesiology Consultation ---
Date of Service July 13, 2018 Widely metastatic colon cancer htn Assessment & Plan (1) Encounter for pre-operative examination: Chart Review Chart Review: Acceptable Risk for Surgery and Patient NOT seen in Pre Admission Testing Consults Requested none ASA ASA4 Proposed Anesthesia Anesthesia Type: General Risk / Benefits Reviewed With: PT / POA / Parent / Guardian, Accepts Plan and Informed Consent Obtained NPO Date Last Intake of Fluids: 07/12/18 Time Last Intake of Fluids: 23:30 Date Last Intake of Solids: 07/10/18 Time Last Intake of Solids: 15:00 History Surgery Operation Date: 07/13/18 13:40 Proposed Procedures p Incisional Hernia Repair - Anil Evans DO, FACS Height/Weight Height: 6 ft Weight: 93.3 kg Allergies Allergy/AdvReac Type Severity Reaction Status Date / Time No Known Allergies Allergy Unverified 08/24/16 08:19 Medications Home Medications Medication Instructions Recorded Confirmed Last Taken lisinopril 20 mg PO DAILY 07/12/18 07/12/18 Unknown multivitamin 1 tab PO DAILY 07/12/18 07/12/18 Unknown ondansetron HCl [Zofran] 0 mg PO UD PRN 07/12/18 07/12/18 07/12/18 09:00 Active Medications Generic Name Dose Route Start Last Admin Trade Name Freq PRN Reason Stop Dose Admin Enoxaparin Sodium 40 mg 07/12/18 23:45 07/13/18 00:52 Lovenox SQ 08/11/18 23:44 Not Given DAILY@2200 TRINH Lactated Ringer's 1,000 mls @ 125 mls/hr 07/12/18 20:45 07/13/18 05:28 Lr IV 08/11/18 20:44 125 mls/hr .Q8H TRINH Administration Promethazine HCl 12.5 mg/ 50.5 mls @ 202 mls/hr 07/13/18 09:55 07/13/18 10:46 Sodium Chloride IV 08/12/18 09:54 Infused Q6H PRN Infusion Nausea And Vomiting Morphine Sulfate 4 mg 07/12/18 19:49 07/13/18 06:41 Morphine Sulfate IV 07/26/18 19:48 4 mg Q3H PRN Administration SEVERE Pain (Scale 7,8,9,10) Ondansetron HCl 4 mg 07/12/18 19:49 07/13/18 06:41 Zofran IV 08/11/18 19:48 4 mg Q4H PRN Administration Nausea And Vomiting Ranitidine HCl 150 mg 07/12/18 23:45 07/13/18 07:38 Zantac PO 08/11/18 23:44 150 mg BID TRINH Administration Past Medical History Medical History Colon cancer (Resolved) Past Surgical History Surgical History History of colon resection (Resolved) Social History Smoking Status: Never smoker Hx Alcohol Use: No Hx Substance Use: No Physical Exam Vital Signs Last Vital Signs Temp 37.1 C 07/13/18 12:36 Pulse 53 L 07/13/18 12:36 Resp 20 07/13/18 12:36 BP 156/82 H 07/13/18 12:36 Pulse Ox 100 07/13/18 12:36 ENMT Mouth: no TMJ abnormality Thyromental Distance: > or= 3.5 Finger Breadths Mallampati Class: II Neck normal visual inspection and + facial hair Respiratory normal respiratory effort Cardiovascular Rate/Rhythm: regular rate and regular rhythm Neurologic moves all extremities Psychiatric Orientation: alert Testing Laboratory Results 07/12/18 13:00 07/12/18 13:00 PT 12.1 Seconds (9.0-12.0) H 07/12/18 13:00 INR 1.2 (0.9-1.1) H 07/12/18 13:00
[2018-07-13] MEDS ORDERED: BUPIVACAINE 0.5 % 5 MG/1 ML MPF 30ML VIAL ONE (13:09)
[2018-07-13] MEDS ORDERED: MIDAZOLAM HCL 1 MG/ML 2ML VIAL ONE (13:13)
[2018-07-13] MEDS ORDERED: PROPOFOL IV EMULSION 10 MG/ML 20 ML VIAL IV ONE (13:13)
[2018-07-13] MEDS ORDERED: fentaNYL citrate 100 MCG/2 ML VIAL ONE (13:13)
[2018-07-13] MEDS ORDERED: ROCURONIUM BROMIDE 10 MG/ML 5 ML VIAL ONE ×2 (13:13→14:26)
[2018-07-13] MEDS ORDERED: CEFAZOLIN 2000MG 2,000 MG/15 ML SYR IV ONE (13:45)
[2018-07-13] MEDS ORDERED: CEFAZOLIN 250 MG/ML 1 GM VIAL ONE (13:49)
[2018-07-13] MEDS ORDERED: ONDANSETRON INJ 2 MG/ML 2 ML VIAL ONE (14:12)
[2018-07-13] MEDS ORDERED: DEXAMETHASONE SOD INJ 4 MG/ML VIAL ONE (14:12)
[2018-07-13] MEDS ORDERED: HYDROmorphone INJ 2 MG/ML SYR/VIAL ONE (14:27)
[2018-07-13] MEDS ORDERED: GLYCOPYRROLATE 0.2 MG/ML VIAL ONE (15:14)
[2018-07-13] MEDS ORDERED: NEOSTIGMINE METHYLSULFATE 5 MG/5 ML SYR ONE (15:14)
[2018-07-13] MEDS ORDERED: BUPIVACAINE LIPOSOME 1.3% 266 MG/20 ML VIAL ONE (15:18)
--- NOTE | 2018-07-13 15:58 | Post Operative Brief Note ---
Immediate Post Op Note v1 Date of Surgery July 13, 2018 Pre & Post Diagnosis Operation Date: 07/13/18 13:40 Pre-Op Diagnosis: incarcerated incisional hernia, small bowel obstruction Post-Op Diagnosis: incarcerated incisional hernia, small bowel obstruction Procedure Operation Date: 07/13/18 13:40 Actual Procedures p exploratory laparotomy, Lysis of Adhesions, component separation repair of incarcerated incisional hernia(Not Applicable) - Anil Evans DO, SHANEL Surgeon Anil Evans DO, SHANEL [employer] [place] Crowell Estimated Blood Loss 20 Findings Consistent with Post-Op Diagnosis Multiple fascial defects. Transition point actually associated with adhesions. Extensive lysis of adhesions performed. 2 small serosal injuries closed with interrupted 3-0 Lembert silk sutures. Component separation with releasing incision of anterior sheath external oblique bilaterally. Fascia closed primarily with interrupted #1 Ethibond [id number] sutures. Ovitex mesh placed in onlay fashion, secured with 0 nurolon sutures. Exparel injected. Skin closed with 3-0 vicryl deep dermal followed by cadence. Anesthesia Type General Complications none Disposition Accompanied Patient To Recovery: No Disposition: Recovery Room
--- NOTE | 2018-07-13 16:22 | Operative Report ---
Post Operative Report Pre & Post Diagnosis Operation Date: 07/13/18 13:40 Pre-Op Diagnosis: incarcerated incisional hernia, small bowel obstruction Post-Op Diagnosis: incarcerated incisional hernia, small bowel obstruction Procedure Operation Date: 07/13/18 13:40 Actual Procedures p exploratory laparotomy, Lysis of Adhesions, component separation repair of incarcerated incisional hernia(Not Applicable) - Anil Evans DO, SHANEL Surgeon Anil Evans DO, SHANEL Water Conservation Specialist Dallas Crowell Estimated Blood Loss 20 Findings Consistent with Post-Op Diagnosis Multiple fascial defects. Transition point actually associated with adhesions. Extensive lysis of adhesions performed. 2 small serosal injuries closed with interrupted 3-0 Lembert silk sutures. Component separation with releasing incision of anterior sheath external oblique bilaterally. Fascia closed primarily with interrupted #1 Ethibond [id number] sutures. Ovitex 1S [id number] mesh placed in onlay fashion, secured with 0 nurolon sutures. Exparel injected. Skin closed with 3-0 vicryl deep dermal followed by cadence. Specimens None Anesthesia Type General Complications none Disposition Accompanied Patient To Recovery: No Disposition: Recovery Room Indications 63-year-old male with stage IV colon cancer and history of colectomy and liver resection, presented overnight with an incarcerated incisional hernia with r esulting small bowel obstruction. The hernia was reduced in the emergency department, and the patient was admitted with plans for incisional hernia repair today in the OR. The risks of the procedure were discussed, all questions were answered, and the patient agreed to proceed with surgery as planned. Description of Procedure The patient was properly identified, consented, and taken to the operating room where he was placed in the supine position. General endotracheal anesthesia was induced. SCDs, an NG tube, and a safety belt were placed. Preoperative antibiotics were administered. The patient's abdomen was prepped and draped in the standard sterile fashion. Surgical timeout was performed and all parties were in agreement that this was the correct patient and procedure to be performed and we continued as planned. An upper midline incision was made and the old scar was excised. This was deepened down to the fascia with blunt dissection. There were multiple fascial defects and multiple hernias. One hernia contained a portion of colon. Hernia sacs were resected and the fascia cleared of investing tissue for several centimeters. There was a small fascial bridge that was divided to combine the defect. The total length of the defects combined was approximately 7 cm in size. It was noted that there was still distended bowel despite reduction of the hernias. There is some dense small bowel adhesions to the anterior abdominal wall. These were taken down with sharp dissection using Metzenbaum scissors. The bowel was then eviscerated and run. There were several adhesions still to the abdominal wall and these were taken down. We found the transition point with a tight adhesive band around it. This was lysed. After the extensive lysis of adhesions, the bowel was run. There were 2 small serosal injuries that were closed with interrupted 3-0 silk Lembert sutures. The bowel was returned to the abdominal cavity. The the larger midline defect was examined. An additional fascial defect inferior was closed primarily with a [id number] 0 Ethibond suture. A left lateral fascial defect was combined with the primary defect. The fascia was grasped with Johnny's and brought to the midline. It appeared to be under a significant amount of tension. At this point we continued our dissection on the anterior fascia and released the anterior sheath of the external oblique, performing a partial component separation. This was performed on both sides. The fascia then appeared to approximate well, with very little tension. The fascia was then closed primarily with interrupted #1 Ethibond [id number] sutures. The wound was irrigated and Exparel mixed 50-50 with half percent Marcaine was injected in the fascia and skin incision. A 10 x 12 cm piece of Ovitex 1s mesh was then placed an onlay position and sutured to the fascia in a clockwise fashion with interrupted 0 Nurolon sutures. The wound was irrigated and hemostasis confirmed. The skin was closed with interrupted 3-0 Vicryl deep dermal sutures, followed by cadence. A sterile dressing was placed over the wound, and an abdominal binder was placed around the abdomen. The patient was extubated in the operating room and taken to the PACU where he recovered without apparent incident. All sponge, instrument and needle counts were correct at the conclusion of the procedure. The patient tolerated the procedure well. The physician's dental ceramist assistant was present and scrubbed for the entirety of the case. He was critical in positioning the patient, prepping and draping, retraction exposure, performance of the lysis of adhesions, closure of the defect, placement of the mesh, closure of the incision, and placement of the dressings. I attest to the content of the Intraoperative Record and any orders documented therein. Any exceptions are noted below.
--- NOTE | 2018-07-13 16:52 | Anesthesiology Progress Note ---
Date of Service July 13, 2018 Anesthesia Post Procedure Vital Signs Vital Signs: Temp Pulse Pulse Resp BP Pulse Ox 07/13/18 16:35 36.9 C 72 20 158/87 H 100 07/13/18 16:25 68 16 150/86 H 100 07/13/18 16:15 63 17 147/84 H 100 07/13/18 16:05 36 C L 77 16 164/88 H 100 07/13/18 12:36 37.1 C 53 L 20 156/82 H 100 07/13/18 07:42 36.8 C 60 15 130/74 98 07/12/18 22:29 36.9 C 61 16 151/78 H 98 07/12/18 19:49 37.1 C 64 18 167/79 H 98 07/12/18 19:00 57 L 128/72 96 Pain Intensity Right Abdomen: Pain Intensity: 3 Notes Mental Status: alert / awake / arousable and participated in evaluation Patient Amnestic to Procedure: Yes Nausea / Vomiting: adequately controlled Pain: adequately controlled Airway Patency, RR, SpO2: stable & adequate BP & HR: stable & adequate Hydration State: stable & adequate Anesthetic Complications: no major complications apparent
[2018-07-13] MEDS ORDERED: NALOXONE HCL 0.4 MG/1 ML VIAL/CARP IV PRN (17:11)
[2018-07-13] MEDS ORDERED: MoRPHine SULFATE PCA 50 MG/50ML IV PRN (17:11)
[2018-07-13] MEDS: SODIUM CHLORIDE 0.9% 1000ML 1,000 ML IV SCH (17:25)
[2018-07-13] MEDS: ACETAMINOPHEN 1,000 MG/100 ML VIAL IV SCH (17:39)
[2018-07-13] MEDS ORDERED: COUGH DROP (SUGAR FREE) LOZ 24 LOZ/1 BOX BUCCAL PRN (20:23)
--- NOTE | 2018-07-13 20:34 | Surgery Progress Note ---
Date of Service July 13, 2018 Assessment & Plan (1) Incisional hernia, incarcerated: POH 4 hours describe to pt need for ng tube that may need to stay in even a few more days until Gi function returns( will give lozenges to help tolerate) I will not give order to remove it I cannot stop him from leaving AMA discussed with nursing fast food supervisor present with my discussion with pt 63-year-old male with colon cancer metastatic to liver with incarcerated incisional hernia causing bowel obstruction. Plan for incisional hernia repair in the operating room The risk of the procedure were discussed to include but are not limited to bleeding, infection, recurrence, damage to surrounding structures, need for future or more extensive surgery, the risks of anesthesia. Ancef preop Diagnosis, details of procedure and recovery, and plan of care discussed the patient, all cords were answered, the patient expressed understanding agrees the plan of care as stated. (2) Metastatic colon cancer to liver: (3) History of colon resection: (4) Hypertension: Subjective related to nurses that he wants NG tube out otherwise will leave AMA Physical Exam Vital Signs (Past 24 Hours): Last Vital Signs Temp 36.7 C 07/13/18 19:33 Pulse 73 07/13/18 19:33 Resp 18 07/13/18 19:33 BP 149/77 H 07/13/18 19:33 Pulse Ox 96 07/13/18 19:33 Physical Exam: alert coherent in no distress upset that no one talked to him after surgery(darlyn 3 hours ago) and that never had NG tube in for this long before Gastrointestinal (Abdomen): ng tube in place abd grossly benign
[2018-07-13] MEDS: KETOROLAC 30 MG/ML VIAL IV PRN (23:29)
[2018-07-14] MEDS: ACETAMINOPHEN 1,000 MG/100 ML VIAL IV SCH ×3 (01:14→17:47)
[2018-07-14] MEDS: LACTATED RINGER'S 1,000 ML IV SCH ×2 (05:56→13:50)
[2018-07-14 06:29] LABS: BUN Creatinine Ratio 25.9 (10-20); Calcium 8.1 mg/dl (8.5-10.1); Creatinine Clr Calc Pharmacy 81.4 ml/min; Est GFR (African American) 80.9; Est GFR (Non-African American) 69.8; Potassium 4.4 mmol/L (3.5-5.1)
[2018-07-14 06:51] LABS: Basophils # (auto) 0.01 K/uL (0-0.2); Basophils % (auto) 0.1 %; Hematocrit (blood only) 37.9 % (42-52); Hemoglobin 12.9 g/dL (14.0-18.0); Immature Granulocytes # (auto) 0.02 K/uL (0.00-0.02); Immature Granulocytes % (auto) 0.2 %; Lymphocytes # (auto) 0.81 K/uL (1.2-3.4); Lymphocytes % (auto) 8.5 %; Mean Corpuscular Volume 95.2 fL (80-100); Mean Platelet Volume 9.8 fL (7.4-10.4); Monocytes # (auto) 0.95 K/uL (0.11-0.59); Monocytes % (auto) 9.9 %; Neutrophils # (auto) 7.76 K/uL (1.4-6.5); Neutrophils % (auto) 81.3 %; Platelet Count 192 K/uL (130-400); RDW Standard Deviation 45.1 fL (36.4-46.3); Red Blood Count 3.98 M/uL (4.7-6.1); White Blood Count 9.55 K/uL (4.8-10.8)
[2018-07-14] MEDS ORDERED: MoRPHine SULFATE 4 MG/ML 1 ML CARP\\VIAL IV PRN ×2 (08:04)
--- NOTE | 2018-07-14 08:04 | Surgery Progress Note ---
Date of Service July 14, 2018 Assessment & Plan (1) Incisional hernia, incarcerated: POD 1 incisional hernia, extensive DINORA cont NG ambulate can have ice Subjective pain control good, no nausea, NG irritating but he understands importance Physical Exam Vital Signs (Past 24 Hours): Last Vital Signs Temp 36.5 C 07/14/18 07:02 Pulse 63 07/14/18 07:02 Resp 18 07/14/18 07:02 BP 126/80 07/14/18 07:02 Pulse Ox 98 07/14/18 07:02 Gastrointestinal (Abdomen): Inspection/Auscultation: abdomen not distended Percussion/Palpation: abdomen soft NG 2 liter total
[2018-07-14] MEDS: ENOXAPARIN INJ 40 MG/0.4 ML SYR SQ SCH (08:51)
--- NOTE | 2018-07-14 09:45 | Anesthesiology Progress Note ---
Date of Service July 14, 2018 Anesthesia Post Procedure Vital Signs Vital Signs: Temp Pulse Pulse Resp BP Pulse Ox 07/14/18 07:02 36.5 C 63 18 126/80 98 07/14/18 03:00 36.8 C 63 16 131/76 99 07/13/18 23:15 36.8 C 65 16 121/75 97 07/13/18 19:33 36.7 C 73 18 149/77 H 96 07/13/18 18:50 77 16 137/89 99 07/13/18 17:59 72 16 135/86 98 07/13/18 17:28 84 18 132/82 98 07/13/18 16:55 36.2 C L 63 18 147/80 H 97 07/13/18 16:35 36.9 C 72 20 158/87 H 100 07/13/18 16:25 68 16 150/86 H 100 07/13/18 16:15 63 17 147/84 H 100 07/13/18 16:05 36 C L 77 16 164/88 H 100 07/13/18 12:36 37.1 C 53 L 20 156/82 H 100 Pain Intensity Right Abdomen: Pain Intensity: 3 Notes Mental Status: alert / awake / arousable and participated in evaluation Patient Amnestic to Procedure: Yes Nausea / Vomiting: see Notes below Pain: adequately controlled Airway Patency, RR, SpO2: stable & adequate BP & HR: stable & adequate Hydration State: stable & adequate Anesthetic Complications: no major complications apparent and Pt Satisfied with anesthetic care
[2018-07-14] MEDS: KETOROLAC 30 MG/ML VIAL IV PRN ×2 (12:01→21:08)
[2018-07-14] MEDS: D5W AND NSS 1,000 ML IV SCH ×2 (13:49→21:02)
[2018-07-14] MEDS: SODIUM CHLORIDE 0.9% 1000ML 1,000 ML IV SCH (16:36)
[2018-07-15] MEDS: ACETAMINOPHEN 1,000 MG/100 ML VIAL IV SCH ×3 (02:47→19:06)
[2018-07-15] MEDS: D5W AND NSS 1,000 ML IV SCH ×3 (04:27→19:06)
[2018-07-15] MEDS: ENOXAPARIN INJ 40 MG/0.4 ML SYR SQ SCH (08:54)
--- NOTE | 2018-07-15 09:05 | Surgery Progress Note ---
Date of Service July 15, 2018 Assessment & Plan (1) Incisional hernia, incarcerated: POD #2 laparotomy, extensive lysis of adhesions, and incarcerated incisional hernia repair with mesh and component separation. Overall doing well, awaiting return of bowel function Continue NG tube to low intermittent wall suction Encourage ambulation, IS We will remove NG tube once return of bowel function Lovenox for DVT prophylaxis Dr. Harley will be covering over the weekend Present on Admission?: Yes Subjective 63-year-old male stage IV colon cancer POD #2 laparotomy, extensive lysis of adhesions, and abdominal component separation for complex incarcerated incisional hernia. Overall doing well, some soreness but pain well controlled. NG tube output decreasing, but still no flatus. Physical Exam Vital Signs (Past 24 Hours): Last Vital Signs Temp 36.9 C 07/15/18 07:50 Pulse 64 07/15/18 07:50 Resp 16 07/15/18 07:50 BP 130/75 07/15/18 07:50 Pulse Ox 96 07/15/18 07:50 Constitutional: WD/WN, vitals as above Gastrointestinal (Abdomen): NG tube at 1290 cc of bilious fluid. Abdomen soft, probably tender to palpation, moderately distended. Dressing with no strikethrough.
[2018-07-15 09:39] LABS: Basophils # (auto) 0.01 K/uL (0-0.2); Basophils % (auto) 0.1 %; Eosinophils # (auto) 0.03 K/uL (0-0.5); Eosinophils % (auto) 0.4 %; Hematocrit (blood only) 35.4 % (42-52); Hemoglobin 11.7 g/dL (14.0-18.0); Immature Granulocytes # (auto) 0.02 K/uL (0.00-0.02); Immature Granulocytes % (auto) 0.3 %; Lymphocytes # (auto) 0.52 K/uL (1.2-3.4); Lymphocytes % (auto) 7.6 %; Mean Corpuscular Hgb Conc 33.1 g/dL (32-36); Mean Corpuscular Volume 95.9 fL (80-100); Mean Platelet Volume 9.3 fL (7.4-10.4); Monocytes # (auto) 0.78 K/uL (0.11-0.59); Monocytes % (auto) 11.4 %; Neutrophils # (auto) 5.51 K/uL (1.4-6.5); Neutrophils % (auto) 80.2 %; Platelet Count 148 K/uL (130-400); RDW Coefficient of Variation 13.1 % (11.5-14.5); RDW Standard Deviation 45.4 fL (36.4-46.3); Red Blood Count 3.69 M/uL (4.7-6.1); White Blood Count 6.87 K/uL (4.8-10.8)
[2018-07-15 10:13] LABS: BUN Creatinine Ratio 30.5 (10-20); Calcium 7.8 mg/dl (8.5-10.1); Creatinine Clr Calc Pharmacy 109.6 ml/min; Est GFR (African American) 109.5; Est GFR (Non-African American) 94.5; Potassium 3.6 mmol/L (3.5-5.1)
[2018-07-15] MEDS: KETOROLAC 30 MG/ML VIAL IV PRN ×2 (11:15→23:40)
[2018-07-15] MEDS: ONDANSETRON INJ 2 MG/ML 2 ML VIAL IV PRN (15:19)
[2018-07-15] MEDS: SODIUM CHLORIDE 0.9% 1000ML 1,000 ML IV SCH (18:53)
[2018-07-16] MEDS: ACETAMINOPHEN 1,000 MG/100 ML VIAL IV SCH ×3 (02:03→17:19)
[2018-07-16] MEDS: D5W AND NSS 1,000 ML IV SCH ×3 (02:27→18:18)
[2018-07-16 06:24] LABS: Basophils # (auto) 0.01 K/uL (0-0.2); Basophils % (auto) 0.2 %; Eosinophils # (auto) 0.05 K/uL (0-0.5); Eosinophils % (auto) 0.8 %; Hematocrit (blood only) 34.1 % (42-52); Hemoglobin 11.2 g/dL (14.0-18.0); Immature Granulocytes # (auto) 0.01 K/uL (0.00-0.02); Immature Granulocytes % (auto) 0.2 %; Lymphocytes # (auto) 0.66 K/uL (1.2-3.4); Lymphocytes % (auto) 10.7 %; Mean Corpuscular Hgb Conc 32.8 g/dL (32-36); Mean Corpuscular Volume 96.9 fL (80-100); Mean Platelet Volume 9.8 fL (7.4-10.4); Monocytes # (auto) 0.58 K/uL (0.11-0.59); Monocytes % (auto) 9.4 %; Neutrophils # (auto) 4.86 K/uL (1.4-6.5); Neutrophils % (auto) 78.7 %; Platelet Count 150 K/uL (130-400); RDW Coefficient of Variation 13.2 % (11.5-14.5); RDW Standard Deviation 45.7 fL (36.4-46.3); Red Blood Count 3.52 M/uL (4.7-6.1); White Blood Count 6.17 K/uL (4.8-10.8)
[2018-07-16 07:07] LABS: BUN Creatinine Ratio 25.6 (10-20); Calcium 7.8 mg/dl (8.5-10.1); Creatinine Clr Calc Pharmacy 129.6 ml/min; Est GFR (African American) 117.4; Est GFR (Non-African American) 101.3; Potassium 3.5 mmol/L (3.5-5.1)
[2018-07-16] MEDS: ENOXAPARIN INJ 40 MG/0.4 ML SYR SQ SCH (09:09)
--- NOTE | 2018-07-16 11:14 | Surgery Progress Note ---
Date of Service July 16, 2018 pt is doing fine, passed BM today, no abdominal pain, no nausea, no vomiting, NG tube 200ml/12 h Assessment & Plan (1) Incisional hernia, incarcerated: doing fine, passed BM, pulled out NG tube, clear diet, will F/U Physical Exam Vital Signs (Past 24 Hours): Last Vital Signs Temp 36.7 C 07/16/18 07:52 Pulse 62 07/16/18 07:52 Resp 14 07/16/18 07:52 BP 148/88 H 07/16/18 07:52 Pulse Ox 98 07/16/18 07:52 Constitutional: WD/WN, vitals as above Neck: trachea midline, no thyromegaly Respiratory: normal respiratory effort, lungs clear to auscultation Cardiovascular: RRR, no murmur, no edema Gastrointestinal (Abdomen): normal bowel sounds, soft, nontender, no hepatosplenomegaly Percussion/Palpation: abdomen soft NT, ND, BS + Neurologic: awake Psychiatric: Orientation: alert and oriented x 3 Results & Data Laboratory Results Abnormal lab results 07/16/18 07/16/18 Range/Units 05:58 05:58 RBC 3.52 L (4.7-6.1) M/uL Hgb 11.2 L (14.0-18.0) g/dL Hct 34.1 L (42-52) % Lymph # (Auto) 0.66 L (1.2-3.4) K/uL Chloride 108 H (98-107) mmol/L BUN/Creatinine Ratio 25.6 H (10-20) Glucose 103 H (70-99) mg/dl Calcium 7.8 L (8.5-10.1) mg/dl
[2018-07-16] MEDS: ONDANSETRON INJ 2 MG/ML 2 ML VIAL IV PRN ×2 (13:55→20:03)
[2018-07-16] MEDS: PROMETHAZINE HCL 12.5 MG in SODIUM CHLORIDE 0.9% 50 ML IV PRN (16:14)
[2018-07-16] MEDS: SODIUM CHLORIDE 0.9% 1000ML 1,000 ML IV SCH (18:20)
[2018-07-16] MEDS: KETOROLAC 30 MG/ML VIAL IV PRN (20:02)
[2018-07-17] MEDS: PROMETHAZINE HCL 12.5 MG in SODIUM CHLORIDE 0.9% 50 ML IV PRN ×3 (00:09→23:50)
[2018-07-17] MEDS: D5W AND NSS 1,000 ML IV SCH ×3 (01:54→18:59)
[2018-07-17] MEDS: ACETAMINOPHEN 1,000 MG/100 ML VIAL IV SCH ×3 (03:17→18:16)
[2018-07-17] MEDS: ONDANSETRON INJ 2 MG/ML 2 ML VIAL IV PRN ×2 (05:52→18:22)
[2018-07-17 05:58] LABS: Basophils # (auto) 0.01 K/uL (0-0.2); Basophils % (auto) 0.2 %; Eosinophils # (auto) 0.03 K/uL (0-0.5); Eosinophils % (auto) 0.5 %; Hematocrit (blood only) 34.7 % (42-52); Hemoglobin 11.7 g/dL (14.0-18.0); Immature Granulocytes # (auto) 0.02 K/uL (0.00-0.02); Immature Granulocytes % (auto) 0.3 %; Lymphocytes # (auto) 0.59 K/uL (1.2-3.4); Lymphocytes % (auto) 10.2 %; Mean Corpuscular Hgb Conc 33.7 g/dL (32-36); Mean Corpuscular Volume 94.3 fL (80-100); Mean Platelet Volume 9.2 fL (7.4-10.4); Monocytes # (auto) 0.55 K/uL (0.11-0.59); Monocytes % (auto) 9.5 %; Neutrophils # (auto) 4.59 K/uL (1.4-6.5); Neutrophils % (auto) 79.3 %; Platelet Count 176 K/uL (130-400); RDW Coefficient of Variation 12.9 % (11.5-14.5); RDW Standard Deviation 44.3 fL (36.4-46.3); Red Blood Count 3.68 M/uL (4.7-6.1); White Blood Count 5.79 K/uL (4.8-10.8)
[2018-07-17 06:31] LABS: BUN Creatinine Ratio 21.9 (10-20); Calcium 7.9 mg/dl (8.5-10.1); Creatinine Clr Calc Pharmacy 143.8 ml/min; Est GFR (African American) 122.5; Est GFR (Non-African American) 105.7; Potassium 3.4 mmol/L (3.5-5.1)
[2018-07-17] MEDS: ENOXAPARIN INJ 40 MG/0.4 ML SYR SQ SCH (09:12)
--- NOTE | 2018-07-17 16:34 | Surgery Progress Note ---
Date of Service July 17, 2018 pt had small amount vomiting this morning, now pt feels much better, no nausea, no vomiting, passed gas, Assessment & Plan (1) Incisional hernia, incarcerated: doing fine, passed BM, pulled out NG tube, clear diet, will F/U 07/17/2018, doing fine, Full liquid diet, Physical Exam Vital Signs (Past 24 Hours): Last Vital Signs Temp 36.8 C 07/17/18 15:47 Pulse 54 L 07/17/18 15:47 Resp 17 07/17/18 15:47 BP 158/83 H 07/17/18 15:47 Pulse Ox 99 07/17/18 15:47 Constitutional: WD/WN, vitals as above Neck: trachea midline, no thyromegaly Respiratory: normal respiratory effort, lungs clear to auscultation Cardiovascular: RRR, no murmur, no edema Gastrointestinal (Abdomen): normal bowel sounds, soft, nontender, no hepatosplenomegaly Percussion/Palpation: abdomen soft Neurologic: awake Psychiatric: Orientation: alert and oriented x 3
[2018-07-17] MEDS: SODIUM CHLORIDE 0.9% 1000ML 1,000 ML IV SCH (18:59)
[2018-07-17] MEDS ORDERED: PANTOprazole 40 MG in SYRINGE 0 ML IV ONE (20:45)
[2018-07-17] MEDS ORDERED: ALUMINUM/MAGNESIUM/SIMETH (MAALOX MAX) 30 ML UDC PO STA (22:41)
[2018-07-18] MEDS: D5W AND NSS 1,000 ML IV SCH ×2 (02:30→10:20)
[2018-07-18] MEDS: ACETAMINOPHEN 1,000 MG/100 ML VIAL IV SCH ×2 (02:30→08:37)
[2018-07-18] MEDS: ONDANSETRON INJ 2 MG/ML 2 ML VIAL IV PRN (07:37)
[2018-07-18] MEDS: ENOXAPARIN INJ 40 MG/0.4 ML SYR SQ SCH (08:38)
[2018-07-18] MEDS ORDERED: ACETAMINOPHEN 1,000 MG/100 ML VIAL IV PRN (11:21)
[2018-07-18] MEDS ORDERED: OXYCODONE/ACETAMINOPHEN 5mg/325mg TAB PO PRN (11:21)
--- NOTE | 2018-07-18 11:22 | Surgery Progress Note ---
Date of Service July 18, 2018 Assessment & Plan (1) Incisional hernia, incarcerated: POD 5 add Protonix advance diet as genevieve po analgesics add K+ to IVF Subjective bowels moving but had bloating, reflux after full liquids Physical Exam Vital Signs (Past 24 Hours): Last Vital Signs Temp 37 C 07/18/18 07:20 Pulse 60 07/18/18 07:20 Resp 16 07/18/18 07:20 BP 140/90 07/18/18 07:20 Pulse Ox 96 07/18/18 07:20 Gastrointestinal (Abdomen): Inspection/Auscultation: + abdominal surgical incision (dry dressing); abdomen not distended Percussion/Palpation: abdomen soft
[2018-07-18] MEDS: NSS + 20MEQ KCL 20 MEQ/1,000 ML BAG IV SCH ×2 (12:03→22:17)
[2018-07-18] MEDS: PANTOprazole 40 MG TAB PO SCH (12:05)
[2018-07-18] MEDS: SODIUM CHLORIDE 0.9% 1000ML 1,000 ML IV SCH (17:39)
[2018-07-19] MEDS: ENOXAPARIN INJ 40 MG/0.4 ML SYR SQ SCH (07:53)
[2018-07-19] MEDS: PANTOprazole 40 MG TAB PO SCH (07:53)
[2018-07-19] MEDS: NSS + 20MEQ KCL 20 MEQ/1,000 ML BAG IV SCH (08:11)
--- NOTE | 2018-07-19 11:40 | Surgery Progress Note ---
Date of Service July 19, 2018 Assessment & Plan (1) Incisional hernia, incarcerated: POD 6 hernia repair ok for discharge this afternoon Supervising Physician Co-Signing Physician Notes POD #6 laparotomy, lysis of adhesions, component separation for incarcerated incisional hernias. Doing well, tolerating diet, passing bowel movements, anxious to go home. Plan for discharge today, follow-up next week for dorinda fonseca. Low fiber diet. Call with questions or concerns. Subjective bowels moving, tolerating diet Physical Exam Vital Signs (Past 24 Hours): Last Vital Signs Temp 36.8 C 07/19/18 07:18 Pulse 53 L 07/19/18 07:18 Resp 16 07/19/18 07:18 BP 152/83 H 07/19/18 07:18 Pulse Ox 97 07/19/18 07:18 Gastrointestinal (Abdomen): Inspection/Auscultation: + abdominal surgical incision (clean, dry); abdomen not distended Percussion/Palpation: abdomen soft
[2018-07-19] MEDS ORDERED: HEPARIN 100 UNIT/ML 5ML FLUSH FLUSH PRN (12:36)
[2018-07-19] MEDS ORDERED: HEPARIN 100 UNIT/ML 5ML FLUSH ONE (13:15)
--- NOTE | 2018-07-20 09:58 | Discharge Summary ---
Date of Service July 27, 2018 Admission HPI Per Admitting Provider 63-year-old male with history of stage IV colon cancer presented to the emergency department with increasing pain and a known incisional hernia. He has had the hernia for some time. He had a prior colon resection for colon cancer. He then had a partial liver resection and ablation of metastatic tumors to his liver. After the surgery he noticed that his hernia got slightly larger and more symptomatic. The hernia is in the midline just above into the right of his umbilicus. He started noticing increasing pain and a firm bulge that he could not reduce in the area today. He had nausea and vomiting. Last bowel movement on Wednesday, no gas. He is not currently on any chemotherapy. No history of DVT, not on any current blood thinners. He has hypertension and is on lisinopril. Otherwise he is healthy. Discharge Data Consultations 07/12/18 17:51 ED Decision to Admit Stat Procedures Performed Operation Date: 07/13/18 13:40 Actual Procedures s component separation repair of incarcerated incisional hernia(Not Applicable) - Anil vEans DO, FACS p exploratory laparotomy, Lysis of Adhesions(Not Applicable) - Anil Evans DO, FACS
--- NOTE | 2018-07-25 13:01 | Discharge Summary ---
PRIMARY DISCHARGE DIAGNOSES: 1. Incarcerated incisional hernia. 2. Small-bowel obstruction. SECONDARY DISCHARGE DIAGNOSES: 1. Hypertension. 2. Metastatic colon cancer. PROCEDURE PERFORMED: Exploratory laparotomy with lysis of adhesions, component separation repair of incarcerated incisional hernia. HOSPITAL COURSE: The patient is a 63-year-old male who presented to Emergency Room with complaint of nausea and vomiting. He had incisional hernia and small-bowel obstruction. The hernia was partially reduced in the Emergency Room. He was admitted to surgical service that evening and hernia repair planned for the following morning. He was taken to the operating room as planned. The procedure was well tolerated. A nasogastric tube put out 2 liters over the first 24 hours. Drainage was then decreasing. By day 3, he had a small bowel movement. Nasogastric tube was removed. He was started on clear liquids. Lovenox was being used for DVT prophylaxis. He was advanced to full liquids on day 4. He had some bloating and heartburn over the next 24 hours, but continued to move his bowels. By day 6, his abdomen was soft, flat. Incision was clean and dry. He was able to tolerate regular diet. He was tolerating oral analgesics. He was stable for discharge. DISCHARGE INSTRUCTIONS: Discharge home. Follow up with Dr. Evans within 1 week for removal of skin cadence. Continue to wear the abdominal binder. He is up and around during the day. DISCHARGE MEDICATIONS: Percocet 1-2 tablets every 4 hours as needed. Continue home lisinopril 20 mg daily, daily multivitamin, and Zofran 4 mg as needed.
== END 2018-07-19 18:02 | disposition home or self-care (01) | DRG 336 ==
LOC: ED 11:51 → 3W 18:34